=== PATIENT | male | born 1950 | race Caucasian/White ===

== ENCOUNTER 2017-09-24 10:42 | Inpatient (IN) | payer MEDICARE ==
[~2017-09-24] VITALS: Ht 185.4 cm; Wt 93.4 kg
[2017-09-24 19:10] VITALS: BP 108/75
[2017-09-24] MEDS ORDERED: ACETAMINOPHEN 325 MG TABLET/CAPLET (TYLENOL) PO PRN (20:00)
[2017-09-24] MEDS ORDERED: IBUPROFEN 600 MG (MOTRIN) TAB PO PRN (20:00)
[2017-09-24] MEDS ORDERED: METHOCARBAMOL 500 MG (ROBAXIN) TABLET PO PRN (20:00)
[2017-09-24] MEDS: DULoxetine 20 MG (CYMBALTA) CAP PO SCH (20:27)
[2017-09-24] MEDS: QUEtiapine 200 MG (SEROquel) TAB IMMEDIATE RELEASE PO SCH (20:27)
[2017-09-24] MEDS: SENNA W/DOCUSATE (SENOKOT S) TABLET PO SCH (20:27)
--- NOTE | 2017-09-24 20:38 | PM&R Post Admission Assessment ---
Post Admission Physician Asses Date seen by provider: September 24, 2017 Time seen by provider: 19:40 Admisison Dx: (1) Schwannoma The preadmission screen agrees with the post admission assessment that the patient is a good candidate for inpatient rehabilitation. The patient will have a comprehensive program of inpatient rehabilitation with a goal of maximizing level of functional independence prior to discharge home with family and HHC. The patient will have PT/OT ninety minutes per day, each discipline, five days a week for 10 days for gait, strengthening, conditioning , balance, ADLs, any patient/family/caregiver training as necessary. Speech therapy to do cognitive assessment and treat as indicated. Rehabilitation nursing to assist with bowel, bladder, skin, wound care, medication administration, pain management. Hand Sizer to assist with discharge planning, community reentry. SCD's and heparin Subcut for DVT prophylaxis. He appears to be well motivated to participate in three hours of therapy a day. He should be able to tolerate three hours of therapy a day from a medical standpoint. He should benefit from the three hours of therapy a day. He has a reasonable discharge plan, reasonable discharge rehabilitation goals and a supportive family. He has various comorbidities that need to be closely monitored with medications and treatments adjusted on a daily basis as needed. These include: Surgical Hypothroidism Hearing loss Depression HX ETOH abuse Tobaccoism Barriers to discharge for this patient who had been independent prior to this are for him to be modified independent to supervision for ADLs and mobility skills prior to discharge home with family and HHC, so as to lessen the burden of the caregivers. Risks for this patient include: 1. Fall 2. Fracture 3. DVT 4. Pulmonary embolism 5. Wound infection 6. Skin breakdown 7. Contractures 8. Poorly controlled pain 9. Urinary retention 10. UTI 11. Respiratory infection 12. Aspiration 13. Recurrent infection Estimated Length of Stay: 10 days Prognosis: Rehab prognosis appears good for goal of discharge home with family and HHC modified independent to supervision for ADLs and mobility skills. General: Alert, Oriented X3, Cooperative, No Acute Distress HEENT: Atraumatic, PERRLA, EOMI, Mucous Memb Moist/[place], Other (Bilateral hearing loss left > rt Well healing surgical scra posterior to left ear) Neck: Supple, No JVD Lungs: Clear to Auscultation Heart: Regular Rate Abdomen: Normal Bowel Sounds, Soft, No Tenderness Extremities: No Edema Neuro: Other (generalized mild weaknees) MAYRA KIM MD September 24, 2017 20:38
--- NOTE | 2017-09-24 21:33 | HISTORY AND PHYSICAL ---
DATE OF SERVICE: 09/24/2017 CHIEF COMPLAINT: Difficulty with hearing. 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 The patient had an intraoperative bradycardic asystolic pauses for about 30 seconds, but ultimately inpatient workup was negative. The patient was discharged in good condition to home. The patient presented to [facility] ED on 09/15/2017 with nausea, vomiting. The patient apparently was not taking his dexamethasone prescription. He was provided with a new prescription. He represented to [facility] ED with headaches, nausea, vomiting and altered mental status. The patient became agitated and combative. He required intubation and sedation and was transferred to [facility] and was admitted there on 09/17/2017. He was found to have acute encephalopathy secondary to bacterial meningitis. The patient was treated with antibiotics. Clinically, he was improving, but left with general debilitation and he is referred to inpatient rehabilitation unit at [facility] so as to be closer to home. Currently, he is Min assist for transfers and gait.He is Mod Independent for eating and SBA for the bulk of the rest of his basic adls.ST notes some mild cognitive impairments but sppech is intact No complaints of pain at this time. He complains of complete hearing loss on the left and partial hearing loss on the right which has been chronic. He is a retired [employer]. He has two adult sons that live nearby. He is single. PAST MEDICAL HISTORY: Ethanol abuse, anxiety disorder, bipolar disorder, colitis, generalized headaches, hypothyroidism on replacement, tobacco abuse. PAST SURGICAL HISTORY: As per above, thyroidectomy for goiter in 1988, tonsillectomy in 1969, finger surgery for right broken thumb, pin placed and then removed, vasectomy. ALLERGIES: No known medication allergies. FAMILY HISTORY: Noncontributory. SOCIAL HISTORY: Retired [employer], 2 packs per day of cigarettes for 30 years, ethanol abuse, had been independent prior to this. REVIEW OF SYSTEMS: Ten point review of systems significant for hearing loss, depression and anxiety. MEDICATIONS: Folic acid 1 mg p.o. daily, lisinopril 10 mg p.o. daily, vitamin B 100 mg p.o. daily, multivitamins with minerals one tablet p.o. daily, Synthroid 100 mcg p.o. daily, Cymbalta 40 mg p.o. b.i.d., Seroquel 200 mg p.o. t.i.d., Senokot-S 1 tablet p.o. b.i.d., Tylenol 650 mg p.o. q.4 hours p.r.n. mild pain. Heparin subq 5000 units subQ q.8hours, ibuprofen 600 mg p.o. q.8 hours p.r.n. mild pain. Robaxin 500 mg p.o. t.i.d. p.r.n. spasms. OxyIR 5 mg p.o. q.4 hours p.r.n. severe pain. PHYSICAL EXAMINATION: GENERAL: Significant for a male appearing his stated age, alert and oriented. Lying in bed in no acute distress. HEENT: He has shoulder length hair. He reports no hearing in the left ear, decreased hearing on the right. Vision and speech are grossly intact. No oral lesion is noted. His surgical site is healing well behind his left ear. NECK: Supple without mass. HEART: Regular rhythm. LUNGS: Chest is clear. ABDOMEN: Soft, nontender, bowel sounds present. EXTREMITIES: No leg edema, no calf tenderness. MUSCULOSKELETAL: He has functional active range of motion in all 4 extremities. NEUROLOGIC: Sensation is grossly intact to touch. Cognition mildly impaired with sone impulsivity. He has functional strength in BUES and %/% strength in BLES except for hip flex which is 4/5.he has mildly impaired standing balance. . He has a left facial droop, IMPRESSION: 1. General debilitation secondary to postop complications status post suboccipital craniotomy with retrosigmoid approach for resection of vestibular schwannoma, Dr. Gilliland [facility] 09/08/2017. 2. Postoperative bacterial meningitis treated. 3. Ethanol abuse. 4. Tobaccoism. 5. Bipolar disorder on meds. 6. Anxiety disorder on meds. 7. Surgical hypothyroidism, on replacement. 8. Bilateral hearing loss, left more than right. 9. Deep vein thrombosis prophylaxis, on heparin subq. PLAN: The patient will have comprehensive program of inpatient rehabilitation with goal of maximizing level of functional independence prior to discharge home with family and home health care. The patient will have PT, OT 90 minutes per day each discipline, 5 days a week for 7 to 10 days with the goal of discharging home with family and home health care, modified independent, supervision for ADLs and mobility skills. Speech therapy to assist the patient with compensatory techniques for his hearing loss and to do cognitive assessment and treat as indicated. Rehabilitation nursing to assist with bowel, bladder, skin, wound care, medication administration, pain management, food and nutrition services assistant to assist with discharge planning, community reentry. Please see post-admission physician evaluation which is a separate evaluation for details of plan of care. We will ask Dr. Jordan to assist with medical management as needed for this out of town patient. Routine admission labs. ESTIMATED LENGTH OF STAY: 10 days. PROGNOSIS: Rehab prognosis appears good for goal of discharge home with home health care and family to assist as needed, modified independent to supervision for ADLs and mobility skills. DIET: Regular. CODE STATUS: Full code. Job ID: [id number] DocumentID: [id number] Dictated Date: 09/24/2017 20:32:42 Publishing Editor Date: 09/24/2017 21:32:35 Dictated By: MAYRA KIM MD MTDD
[2017-09-25 05:07] VITALS: BP 126/78
[2017-09-25] MEDS: THIAMINE 100 MG (VITAMIN B-1) TAB PO SCH (05:25)
[2017-09-25] MEDS: MULTIVIT W/MINERALS TAB (THERAGRAN M) PO SCH (05:25)
[2017-09-25] MEDS: LEVOTHYROXINE 100 MCG (LEVOTHROID) TAB PO SCH (05:25)
[2017-09-25 05:51] LABS: BASOPHILS % (AUTO) 0 % (0-10); EOSINOPHILS # (AUTO) 0.2 10^3/uL (0.0-0.3); EOSINOPHILS % (AUTO) 1 % (0-10); HEMATOCRIT 42 % (40-54); HEMOGLOBIN 15.5 G/DL (13.3-17.7); LYMPHOCYTES # (AUTO) 9.7 X 10^3 (1.0-4.0); LYMPHOCYTES % (AUTO) 63 % (12-44); MEAN CORPUSCULAR HEMOGLOBIN 34 PG (25-34); MEAN CORPUSCULAR HGB CONC 37 G/DL (32-36); MEAN CORPUSCULAR VOLUME 91 FL (80-99); MEAN PLATELET VOLUME 8.8 FL (7.4-10.4); MONOCYTES % (AUTO) 7 % (0-12); NEUTROPHILS # (AUTO) 4.5 X 10^3 (1.8-7.8); NEUTROPHILS % (AUTO) 29 % (42-75); PLATELET COUNT 280 10^3/uL (130-400); RED BLOOD COUNT 4.57 10^6/uL (4.35-5.85); RED CELL DISTRIBUTION WIDTH 12.3 % (10.0-14.5); WHITE BLOOD COUNT 15.4 10^3/uL (4.3-11.0)
[2017-09-25 06:13] LABS: ALANINE AMINOTRANSFERASE 40 U/L (0-55); ALBUMIN 3.8 GM/DL (3.2-4.5); ALKALINE PHOSPHATASE 84 U/L (40-136); BILIRUBIN,TOTAL 0.5 MG/DL (0.1-1.0); BUN/CREATININE RATIO 16; CALCIUM 9.8 MG/DL (8.5-10.1); CARBON DIOXIDE 23 MMOL/L (21-32); CHLORIDE 100 MMOL/L (98-107); CREATININE SERUM 0.75 MG/DL (0.60-1.30); GFR ESTIMATED > 60; GLUCOSE 105 MG/DL (70-105); SODIUM 133 MMOL/L (135-145); TOTAL PROTEIN 6.4 GM/DL (6.4-8.2)
--- NOTE | 2017-09-25 08:38 | Consultation ---
History of Present Illness History of Present Illness Patient Consulted On(milagro/time) 09/25/17 08:32 Time Seen by Provider: 08:30 History of Present Illness Patient had surgery for an acoustic neuroma, at [facility]. Patient later showed up at [place] emergency department. Patient transferred back to . Patient having acute encephalopathy secondary to bacterial meningitis Patient has generalized debility. Patient has a history of ethanol abuse, anxiety disorder, bipolar, colitis, hypothyroid generalized headache, and tobacco abuse. Surgeries thyroid, right broken thumb, and vasectomy. Patient is deaf in left ear and hard of hearing and in right ear Allergies and Home Medications Allergies Coded Allergies: No Known Allergies (Verified Allergy, Unknown, 09/24/17) Patient Home Medication List Home Medication List Reviewed: Yes Past Togzavf-Lipliw-Ovlhru Hx Patient Social History Alcohol Use: Regular Use Number of Drinks Today: 12 Alcohol Beverage of Choice: Beer Recreational Drug Use: No Smoking Status: Heavy Tobacco Smoker Type Used: Cigarettes Recent Foreign Travel: No Contact w/Someone Who Travel: No Recent Infectious Disease Expo: No Recent Hopitalizations: Yes ([place] Schwannoma 09/08/17) Seasonal Allergies Seasonal Allergies: No Past Medical History Respiratory: No Cardiac: No Neurological: Yes Genitourinary: No Colitis Musculoskeletal: No Endocrine: Yes HEENT: No Cancer: No Psychosocial: Yes Anxiety, Bipolar, Depression Integumentary: No Blood Disorders: No Adverse Reaction/Blood Tranf: No Family Medical History Patient reports no known family medical history. Review of Systems-General Constitutional: weakness EENTM: hearing loss, other (Heart of hearing) Respiratory: no symptoms reported Cardiovascular: no symptoms reported Gastrointestinal: no symptoms reported Genitourinary: no symptoms reported Physical Exam-General Problems Physical Exam Vital Signs Vital Signs - First Documented 09/24/17 19:10 Temp 97.0 Pulse 84 Resp 18 B/P (MAP) 108/75 (86) Pulse Ox 94 O2 Delivery Room Air Capillary Refill : General Appearance: WD/WN, no apparent distress Eyes: Bilateral Eye Normal Inspection HEENT: normal ENT inspection, other (Hard of hearing) Neck: full range of motion, normal inspection Respiratory: lungs clear, no respiratory distress, no accessory muscle use Cardiovascular: regular rate, rhythm, no murmur Gastrointestinal: non tender, soft Assessment/Plan Assessment/Plan Admission Diagnosis/Plan Acute encephalopathy. Debility Admission Status: Inpatient Order (span 2 midnights) Reason for Inpatient Admission: Debility Clinical Quality Measures DVT/VTE Risk/Contraindication: Risk Factor Score Per Nursin RFS Level Per Nursing on Admit: 4+=Very High TRACY BE DO September 25, 2017 08:37
[2017-09-25] MEDS: QUEtiapine 200 MG (SEROquel) TAB IMMEDIATE RELEASE PO SCH ×3 (08:50→19:50)
[2017-09-25] MEDS: DULoxetine 20 MG (CYMBALTA) CAP PO SCH ×2 (08:50→19:50)
[2017-09-25] MEDS: SENNA W/DOCUSATE (SENOKOT S) TABLET PO SCH ×2 (08:51→19:50)
[2017-09-25] MEDS: FOLIC ACID 1 MG TAB PO SCH (08:51)
[2017-09-25] MEDS: lisINopril 10 MG (PRINIVIL) TABLET PO SCH (08:51)
--- NOTE | 2017-09-25 09:58 | Physical Therapy Evaluation ---
PT Evaluation-General Medical Diagnosis Admission Date September 24, 2017 at 19:05 Medical Diagnosis: encephalopathy Onset Date: Nov 07, 2017 Therapy Diagnosis Therapy Diagnosis: impaired mobility, strength, endurance, balance Height/Weight Height (Feet): 6 Height (Inches): 1.00 Weight (Pounds): 219 Weight (Ounces): 0.0 Precautions Precautions/Isolations: Fall Prevention, Standard Precautions Referral Physician: Ryan Reason for Referral: Evaluation/Treatment Medical History Additional Medical History PAST MEDICAL HISTORY: Ethanol abuse, anxiety disorder, bipolar disorder, colitis, generalized headaches, hypothyroidism on replacement, tobacco abuse. PAST SURGICAL HISTORY: thyroidectomy for goiter in 1988, tonsillectomy in 1969, finger surgery for right broken thumb, placed and then removed, vasectomy. 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 The patient had an intraoperative bradycardic asystolic pauses for about 30 seconds, but ultimately inpatient workup was negative. The patient was discharged in good condition to home. The patient presented to [place] ED on 09/15/2017 with nausea, vomiting. The patient apparently was not taking his dexamethasone prescription. He was provided with a new prescription. He represented to [place] ED with headaches, nausea, vomiting and altered mental status. The patient became agitated and combative. He required intubation and sedation and was transferred to [facility] and was admitted there on 09/17/2017. He was found to have acute encephalopathy secondary to bacterial meningitis. The patient was treated with antibiotics. Clinically, he was improving, but left with general debilitation and he is referred to inpatient rehabilitation unit at [facility] so as to be closer to home. Reviewed History: Yes Social History Home: Single Level Current Living Status: Alone Entry Into Home: Stairs Without Railing PT Steps Into Home: 3 Prior/Core FIM Prior Level of Function Functional [place] Measure 0=Not Assessed/NA 4=Minimal Assistance 1=Total Assistance 5=Supervision or Setup 2=Maximal Assistance 6=Modified [place] 3=Moderate Assistance 7=Complete [place] Bed Mobility: 7 Transfers (B,C,W/C) (FIM): 7 Gait: 7 Patient states he uses a single point cane on occasion. PT Evaluation-Current Subjective Patient in bed pre tx, agrees to PT, no complaints of pain. Patient states he has been getting dizzy before his surgeries and still gets dizzy but not as bad. Pt/Family Goals to be independent at home. Objective Patient Orientation: Person, Place ROM/Strength ROM Lower Extremities WNL Strenght Lower Extremities 5/5 gross bilateral lower extremities except for hip flexion which is 4/5 bilaterally Neuromuscular (Tone, Coordination, Reflexes) NT Sensory Vision: Wears Glasses Hearing: Impaired Sensation Right Lower Extremit: Intact Sensation Left Lower Extremity: Intact Transfers Functional [place] Measure 0=Not Assessed/NA 4=Minimal Assistance 1=Total Assistance 5=Supervision or Setup 2=Maximal Assistance 6=Modified [place] 3=Moderate Assistance 7=Complete IndependenceIRFPAI Quality Coding Scale 6 Independent with activity with or without an assistive device 5 Patient requires set up or clean up by helper. Patient completes activity by themselves 4 Supervision or touching assist (CGA). [place] provide cues , steadying assist 3 The helper provides less than half the effort to complete the activity 2 The helper provides more than half the effort to complete the activity 1 Dependent. The helper does all the effort to complete an activity 7 Patient refused to complete or attempt activity 9 The patient did not perform the activity before the current illness or injury 88 Not attempted due to Medical conditions or safety concerns Transfers (B, C, W/C) (FIM): 4 Scootin Rollin Roll Left to Right (QC): 4 Supine to/from Sit: 5 Sit to/from Stand: 5 bed t/f WC(FIM only if WC use): 4 Sit to Lying (QC): 4 Lying to Sitting/Side of Bed(Q: 4 Sit to Stand (QC): 4 Chair/Zpv-hy-Fpkxf Xfer(QC): 4 Car Transfer (QC): 4 Patient performs bed mobility and supine to sit and sit to stand with SBA, stand pivot transfer with CGA, car transfer with CGA. Gait Does the Patient Walk?: Yes Anticipated Mode of Locomotion: Walk Gait (FIM): 4 Walk 10 feet (QC): 4 Walk 50 ft with 2 Turns(QC): 4 Walk 150 ft (QC): 4 Walking 10ft/uneven surface-QC: 4 Distance: 150'x2 Gait Level of Assist: 4 Gait Persons Needed: 1 Gait Assistive Device: FWW Comments/Gait Description Patient can ambulate 150' with a rolling walker with CGA, including 50' with at least 2 turns of 90 degrees and 10' over an uneven surface. Patient is SBA when ambulating without turning but needs CGA on turns. He has unstable moments but no aviva LOB, he is able to recover by himself. Wheelchair Training Does the Pt Use a Wheelchair?: No Stairs Stairs (FIM): 2 #of Steps: 4 Level of Assist: 4 1 Step (curb) (QC): 4 4 Steps (QC): 4 12 Steps (QC): 88 Patient can go up and down 4 steps using 2 handrails with CGA. Balance Sitting Static: Normal Sitting Dynamic: Normal Standing Static: Fair Standing Dynamic: Fair Picking up an Object (QC): 4 Treatment parallel bars exercises x20 (heel raises, mini-squats, hamstring curls), seated hip flexion x20, LAQ alternating for 5 min Assessment/Needs Patient has impaired balance and endurance. He can only perform one or two activities at a time before becoming fatigued. Patient is impulsive and has poor safety awareness. Rehab Potential: Fair PT Short Term Goals Short Term Goals Time Frame: October 02, 2017 Transfers (B,C,W/C) (FIM): 5 Gait (FIM): 5 Gait Distance Comment: 200' Gait Level of Assist: 5 Gait Assistive Device: FWW PT Senior Care Goals Sanitation Lead Goals PT Sanitation Lead Goals Time Frame: Oct 16, 2017 Transfers (B,C,W/C) (FIM): 6 Sit to Lying (QC): 6 Lying-Sitting on Side/Bed(QC): 6 Sit to Stand (QC): 6 Rollin Roll Left to Right (QC): 6 Chair/Ixn-rk-Kgdiw Xfer(QC): 6 Car Transfer (QC): 6 Gait (FIM): 6 Distance: 350' Walk 10 feet (QC): 6 Walk 10ft-Uneven Surface(QC): 6 Walk 50ft with 2 Turns (QC): 6 Walk 150 ft (QC): 6 Gait Level of Assist: 6 Gait Assistive Device: FWW Stairs (FIM): 5 # of Steps: 12 1 Step (curb) (QC): 4 4 Steps (QC): 4 12 Steps (QC): 4 Stairs Level Of Assist: 5 Picking up an Object (QC): 4 PT Plan Problem List Problem List: Activity Tolerance, Functional Strength, Safety, Balance, Gait, Transfer, Bed Mobility Treatment/Plan Treatment Plan: Continue Plan of Care Treatment Plan: Bed Mobility, Education, Functional Activity Sid, Functional Strength, Group Therapy, Gait, Safety, Therapeutic Exercise, Transfers Treatment Duration: Oct 16, 2017 Frequency: At least 5 of 7 days/Wk (IRF) Estimated Hrs Per Day: 1.5 hours per day Patient and/or Family Agrees t: Yes Safety Risks/Education Patient Education: Gait Training, Transfer Techniques, Steps, Correct Positioning, Safety Issues Teaching Recipient: Patient Teaching Methods: Demonstration, Discussion Response to Teaching: Reinforcement Needed Discharge Recommendations Plan Patient will perform bed mobility and transfer training, balance and endurance training, functional strengthening, stair training, gait training, and education , to improve functional mobility and independence at home. Therapy D/C Recommendations: Home w/ Family Support Time/GCodes Time In: 0900 Time Out: 1000 Total Billed Treatment Time: 60 Total Billed Treatment 1 visit EVM 30' GT 15' EX 15' JANA SPRING PT September 25, 2017 09:58
[2017-09-25] MEDS ORDERED: SENN-40 PO (09:59)
[2017-09-25] MEDS ORDERED: QUET200T PO (09:59)
[2017-09-25] MEDS ORDERED: OXYC-529 PO (09:59)
[2017-09-25] MEDS ORDERED: LEVO100T7 PO (09:59)
[2017-09-25] MEDS ORDERED: DULO60CA6 PO (09:59)
[2017-09-25] MEDS ORDERED: LISI10TA2 PO (09:59)
--- NOTE | 2017-09-25 10:35 | ST Cognitive Linguistic Eval ---
Speech Evaluation-General Medical Diagnosis Encephalopathy Onset Date: Nov 07, 2017 Therapy Diagnosis Therapy Diagnosis: Cognitive Linguistic Skills Grossly WNL Precautions Precautions/Isolations: Fall Prevention, Standard Precautions Referral Referring Physician: Dr. Clif Davis Reason for Referral: Evaluation/Treatment Cognitive Evaluation Medical History Pertinent Medical History: Hypothroidism, Smoking - removal of acoustic schwannoma, ETOH abuse, bipolar, colitis Current History The patient was recently admitted to [facility] with a diagnosis of metabolic encephalopathy. Reviewed History: Yes Social History Home: Single Level (Three Steps to Enter) Current Living Status: Alone (Per patient, "I usually stay at my girlfriend's place.") Speech PLF-Current Status Prior Level of Function The patient denied prior challenges with speech, language, or cognition. Subjective The patient was seated upright in bed, reading the menu upon entrance. The patient greeted the clinician appropriately and was agreeable to participation in the cognitive evaluation. To note, the patient has NO HEARING IN THE LEFT EAR AND PARTIAL HEARING IN THE RIGHT EAR- elevated volume levels are necessary for comprehension. Language Eval: Auditory Comprehends Simple Yes/No Ques: Functional Indent/Objects [place]: Functional Ident/Pics in Multiple [place]: Functional Follows Complex Directions: Mild (Repetition of instructions may be necessary, however, the patient's hearing status may also be responsible for the delays he exhibits.) Follows General Conversations: Functional - Elevated volume levels are necessary for comprehension. Language Eval: Verbal Language Completes Spontaneous Greeting: Functional Produces Auto, Serial Info: Functional Imitates Simple Words/Phrases: Functional Word Finding: Functional Requests Basic Needs: Functional (The patient independently requested the clinician place his breakfast order as he was concerned of hearing the telephone call correctly.) States Basic Personal Info: Functional Expresses Complex Ideas: Functional (The patient explained the process to his hospitalization in detail to the clinician.) Language Evaluation: Reading Comprehends Single Nouns: Functional Follows Simple Written Direct: Functional To note, the patient does report left eye blurriness (states improvement on this date). Cognitive Patient Orientation The patient was independently oriented to self, location, month, day of week, date, and year. Objective Cognitive Domain Attention: Mild (The patient does displays intermittent impulsivity. The patient's hearing and vision deficit may compound this as he does not appear aware of his environment.) Memory: WNL Problem Solving: Mild (The patient does displays intermittent impulsivity which may negatively impact problem solving. The patient's hearing and vision deficit may compound this as he does not appear aware of his environment.) Objective Oral Motor/Speech Production The patient displays left facial weakness and the inability to close his left eye. Additionally, a left labial droop is present. Regardless of weakness, the patient remains 100% intelligible in known and unknown contexts. Impression The patient displays cognitive linguistic skills grossly within normal limits, however, may exhibit impulsivity intermittently. The impulsivity appears somewhat related to his poor vision and significantly decreased hearing as his awareness of his environment is extremely limited. Communication/Social Cognition Comprehension: 5 (The patient requires reduced rate of speech, gestural cues, and stressing of particular words less an 10% of the time. Additionally, the patient wears glasses.) Expression: 6 Social Interaction: 6 (The patient is on an anti-depressant.) Problem Solvin Memory: 5 Speech Patient Assess Expression of Ideas/Wants: Expression (4) Understanding Verbal Content: Usually Understands (3) Brief Interview-Mental Status: Yes Repetition of Three Words: Three (3) Temporal Orientation: Year: Correct (3) Temporal Orientation: Month: Accurate within 5 days(2) Temporal Orientation: Day: Correct (1) Recall : Wear to say "Sock": Yes, no cue required (2) Recall : Color: Yes, no cue required (2) Recall : Bed: Yes, no cue required (2) Speech-Plan Treatment Plan Speech Therapy Treatment Plan: Discontinue ST Evaluation, only. Frequency: Modified Program (IRF) (No ST warranted.) Estimated Hrs Per Day: Other (No ST warranted.) Rehab Potential: Fair Safety Risks/Education Teaching Recipient: Patient Teaching Methods: Discussion Response to Teaching: Verbalize Understanding Education Topics Provided: Results, Recommendations, Plan of Care Time Speech Therapy Time In: 08:00 Speech Therapy Time Out: 08:30 Total Billed Time: 30 Billed Treatment Time 1, GABRIELLE BORJA September 25, 2017 10:35
--- NOTE | 2017-09-25 13:00 | Occupational Therapy Eval ---
OT Evaluation-General/PLF Medical Diagnosis Admission Date September 24, 2017 at 19:05 Medical Diagnosis: Encephalopathy, meningitis Onset Date: September 17, 2017 Therapy Diagnosis Therapy Diagnosis: dec self care, decr funct mobility, decr act april Height/Weight Height (Feet): 6 Height (Inches): 1.00 Weight (Pounds): 219 Weight (Ounces): 0.0 Precautions Precautions/Isolations: Fall Prevention, Standard Precautions Safety Interventions: None Referral Physician: Ryan Referral Reason: Evaluation/Treatment Medical History Pertinent Medical History: Hypothroidism, Smoking Additional Medical History ETOH abuse. Anxiety disorder, bipolar. Colitis. Headaches. Thyroidectomy for goiter. Tobacco abuse. 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 Readmitted to for acute encephalopathy on 09-17-17. No hearing on L side, decreased hearing on R side. Reviewed History: Yes Social History Home: Single Level Current Living Status: Alone (Per patient, "I usually stay at my girlfriend's place.") Entry Into Home: Stairs Without Railing Steps Into Home: 3 ADL-Prior Level of Function ADL PLOF Comments Pt reported that he was previously able to manage all of his basic self care needs and do whatever he needed to do around the house. He had his lawn mowed by neighbor recently. 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 He said he drove after his surgery. Occupation: contractor/[address] Self: Yes OT Current Status Subjective Pt seen in room, up in bed, agreeable to OT. Pt reported pain 0/10. Appearance Alert, cooperative. Sleeping but easily awakened. Mental Status/Objective Patient Orientation: Person, Place, Time, Situation Current Glasses/Contacts: Yes Hearing Aids: No Dentures/Partials: No Hand Dominance: Right Upper Extremity ROM Grossly WFL bilat Upper Extremity Sensation No problems, per patient report Upper Extremity Strength Grossly 4+/5 bilat ADL-Treatment ADL-Current Pt declined sponge bath and will wait until tomorrow for shower and clean clothes. He did wash his face and hands with warm water, setup at bedside. His hair is tangled and matted in back and hopefully will work out some in shower. He got up from bed with SBA and walked with CGA, FWW to bathroom where he sat to brush his teeth with setup. He walked to toilet with FWW, SBA and got on toilet but with sitting down fairly uncontrolled. He managed clothing and hygiene with SBA, FWW, grab bar. He walked back to recliner and attempted to order lunch but had difficulty hearing and communicating with food stand manager center. He fed himself without help for setup. Left up in recliner, chair alarm on (he reported he has been taking himself to the bathroom), all needs met. Functional [place] Measure 0=Not Assessed/NA 4=Minimal Assistance 1=Total Assistance 5=Supervision or Setup 2=Maximal Assistance 6=Modified [place] 3=Moderate Assistance 7=Complete IndependenceIRFPAI Quality Coding Scale 6 Independent with activity with or without an assistive device 5 Patient requires set up or clean up by helper. Patient completes activity by themselves 4 Supervision or touching assist (CGA). [place] provide cues , steadying assist 3 The helper provides less than half the effort to complete the activity 2 The helper provides more than half the effort to complete the activity 1 Dependent. The helper does all the effort to complete an activity 7 Patient refused to complete or attempt activity 9 The patient did not perform the activity before the current illness or injury 88 Not attempted due to Medical conditions or safety concerns Eating (FIM): 7 Eating (QC): 6 Grooming (FIM): 5 (setup to wash face and hands, brush teeth. Unable to comb tangles out of hair - may need to get it cut off) Oral Hygiene (QC): 5 (setup) Toileting (FIM): 5 (SBA for clothing management and hygiene. Tall toilet, grab bars, FWW) Toileting Hygiene (QC): 4 (SBA) Toilet/Commode Transfer (FIM): 5 (SBA tall toilet, grab bar) Toilet Transfer (QC): 4 (SBA) Education OT Patient Education: Purpose of tx/functional activities, Rehab process, Safety issues, Transfer techniques Teaching Recipient: Patient Teaching Methods: Demonstration, Discussion Response to Teaching: Verbalize Understanding, Return Demonstration, Reinforcement Needed OT Short Term Goals Short Term Goals Time Frame: October 02, 2017 Toilet/Commode Transfer(FIM): 5 Shower Transfer(FIM): 5 1=Demonstrate adherence to instructed precautions during ADL tasks. 2=Patient will verbalize/demonstrate understanding of assistive devices/ modifications for ADL. 3=Patient will improve strength/tolerance for activity to enable patient to perform ADL's. OT Group Home Goals Digital Media Associate Goals Time Frame: Oct 16, 2017 Eating (FIM): 7 Eating (QC): 6 Groomin Oral Hygiene (QC): 6 Bathing(FIM): 6 Shower/Bathe Self (QC): 6 Upper Body Dressing(FIM): 6 Upper Body Dressing (QC): 6 Lower Body Dressing(FIM): 6 Lower Body Dressing (QC): 6 On/Off Footwear (QC): 6 Toileting(FIM): 6 Toileting Hygiene (QC): 6 Toilet/Commode Transfer(FIM): 6 Toilet/Commode Transfer (QC): 6 Shower Transfer(FIM): 6 Additional Goals: 1-Demonstrate ADL Tasks, 2-Verbalize Understanding, 3- ImproveStrength/Sid 1=Demonstrate adherence to instructed precautions during ADL tasks. 2=Patient will verbalize/demonstrate understanding of assistive devices/ modifications for ADL. 3=Patient will improve strength/tolerance for activity to enable patient to perform ADL's. OT Education/Plan Problem List/Assessment Assessment: Decreased Activ Tolerance, Decreased Safety Aware, Decreased UE Strength, Dependent Transfers, Impaired Funct Balance, Impaired Self-Care Skills Pt would benefit from skilled OT to increase his independence in basic self care Discharge Recommendations Plan/Recommendations: Continue POC Treatment Plan/Plan of Care Treatment,Training & Education: Yes Patient would benefit from OT for education, treatment and training to promote independence in ADL's, mobility, safety and/or upper extremity function for ADL' s. Plan of Care: ADL Retraining, Functional Mobility, Group Exercise/Act as Ind ( education, exercise, activity tolerance, socialization, safety awareness), UE Funct Exercise/Act, UE Neuromus Re-Ed/Coord Treatment Duration: Oct 16, 2017 Frequency: At least 5 of 7 days/Wk (IRF) Estimated Hrs Per Day: 1.5 hours per day Agreement: Yes Rehab Potential: Fair Time/GCodes Start Time: 10:45 Stop Time: 11:30 Total Time Billed (hr/min): 45 Billed Treatment Time visit, evaluation high intensity 20 minutes, ADL 25 minutes PREETHI TORRES OT September 25, 2017 13:00
--- NOTE | 2017-09-25 14:01 | Physical Therapy Daily Note ---
PT Daily Note-Current Subjective Patient in recliner pre tx, agrees to PT, no complaints of pain. Appearance Patient in bathroom post tx, instructed to use nurse call when done, nurse notified patient is in bathroom. Mental Status Patient Orientation: Person, Place, Situation Transfers Functional [place] Measure 0=Not Assessed/NA 4=Minimal Assistance 1=Total Assistance 5=Supervision or Setup 2=Maximal Assistance 6=Modified [place] 3=Moderate Assistance 7=Complete IndependenceIRFPAI Quality Coding Scale 6 Independent with activity with or without an assistive device 5 Patient requires set up or clean up by helper. Patient completes activity by themselves 4 Supervision or touching assist (CGA). [place] provide cues , steadying assist 3 The helper provides less than half the effort to complete the activity 2 The helper provides more than half the effort to complete the activity 1 Dependent. The helper does all the effort to complete an activity 7 Patient refused to complete or attempt activity 9 The patient did not perform the activity before the current illness or injury 88 Not attempted due to Medical conditions or safety concerns Transfers (B, C, W/C) (FIM): 5 Sit to/from Stand: 5 Bed to/from Chair: 5 Gait Training Gait (FIM): 5 Distance: 150'x2 Gait Level of Assist: 5 Gait Persons Needed: 1 Gait Assistive Device: FWW Patient ambulates impulsively and briskly, needs cues for safety. Exercises NuStep Minutes: 15 NuStep Workload: 5 Treatments transfers, ambulation, functional strengthening Assessment Current Status: Fair Progress Patient moves quickly and impulsively but is slow to actually start activities. PT Short Term Goals Short Term Goals Time Frame: October 02, 2017 Transfers (B,C,W/C) (FIM): 5 Gait (FIM): 5 Gait Distance Comment: 200' Gait Level of Assist: 5 Gait Assistive Device: FWW PT Retirement Goals Retirement Goals PT Optical Designer Goals Time Frame: Oct 16, 2017 Transfers (B,C,W/C) (FIM): 6 Sit to Lying (QC): 6 Lying-Sitting on Side/Bed(QC): 6 Sit to Stand (QC): 6 Rollin Roll Left to Right (QC): 6 Chair/Sse-bb-Oodys Xfer(QC): 6 Car Transfer (QC): 6 Gait (FIM): 6 Distance: 350' Walk 10 feet (QC): 6 Walk 10ft-Uneven Surface(QC): 6 Walk 50ft with 2 Turns (QC): 6 Walk 150 ft (QC): 6 Gait Level of Assist: 6 Gait Assistive Device: FWW Stairs (FIM): 5 # of Steps: 12 1 Step (curb) (QC): 4 4 Steps (QC): 4 12 Steps (QC): 4 Stairs Level Of Assist: 5 Picking up an Object (QC): 4 PT Plan Problem List Problem List: Activity Tolerance, Functional Strength, Safety, Balance, Gait, Transfer, Bed Mobility Treatment/Plan Treatment Plan: Continue Plan of Care Treatment Plan: Bed Mobility, Education, Functional Activity Sid, Functional Strength, Group Therapy, Gait, Safety, Therapeutic Exercise, Transfers Treatment Duration: Oct 16, 2017 Frequency: At least 5 of 7 days/Wk (IRF) Estimated Hrs Per Day: 1.5 hours per day Patient and/or Family Agrees t: Yes Safety Risks/Education Patient Education: Gait Training, Transfer Techniques, Correct Positioning, Safety Issues Teaching Recipient: Patient Teaching Methods: Demonstration, Discussion Response to Teaching: Reinforcement Needed Time/GCodes Time In: 1330 Time Out: 1400 Total Billed Treatment Time: 30 Total Billed Treatment 1 visit EX 15' GT 15' JANA SPRING PT September 25, 2017 14:01
--- NOTE | 2017-09-25 14:09 | Individualized Plan of Care ---
Individualized Plan of Care Rehab Nursing IPOC Order Admission Date September 24, 2017 at 19:05 Current Orders Orders General/Regular (09/24/17 Dinner) Sequential Compression Device 08,20 (09/24/17 19:46) Dvt/Vte Risk - Notifiy Physici 08 (09/24/17 19:46) Admission Order(Inpt,Obs,Sdc) (09/24/17 19:47) Vital Signs: Routine (Order) 08,16,00 (09/24/17 19:47) Sequential Compression Device 08,20 (09/24/17 19:47) Car Record Clerk-Inpt Rehab Con (09/24/17 19:47) Rehab Nursing Orders-Ipoc (09/24/17 19:47) Physical Therapy Rehab Orders (09/24/17 19:47) Occupational Therapy Rehab Ord (09/24/17 19:47) Speech Therapy Rehab Orders (09/24/17 19:47) Turn And Reposition Q2HR (09/24/17 19:47) Intake & Output 06,14,22 (09/24/17 19:47) Weekly Weight (Lbs) WEEK (09/24/17 19:47) Cbc With Automated Diff (09/25/17 06:00) Comprehensive Metabolic Panel (09/25/17 06:00) Consult Physician (09/24/17 19:52) Acetaminophen Tablet/Caplet (Tylenol T (09/24/17 20:00) Folic Acid Tablet (Folic Acid Tablet) (09/25/17 09:00) Heparin Injection (Heparin Injection) (09/24/17 20:00) Ibuprofen Tablet (Motrin Tablet) (09/24/17 20:00) Methocarbamol Tablet (Robaxin Tablet) (09/24/17 20:00) Thiamine Tablet (Vitamin B-1 Tablet) (09/25/17 07:00) Therapeutic Multivitamin Tab (Vitamins, (09/25/17 07:00) Oxycodone Immediate Rel Tablet (Oxyir Ta (09/24/17 20:00) Duloxetine Capsule (Cymbalta Capsule) (09/24/17 21:00) Levothyroxine Tablet (Synthroid Tablet) (09/25/17 06:30) Quetiapine Immediate Release (Seroquel I (09/24/17 21:00) Lisinopril Tablet (Zestril Tablet) (09/25/17 09:00) Senna S Tablet (Senokot S Tablet) (09/24/17 21:00) Patient Visit (09/25/17 ) Speech Sound Lang Comp (09/25/17 ) Enoxaparin Injection (Lovenox Injection) (09/26/17 09:00) Patient Visit (09/25/17 ) Pt Eval Moderate Complexity (09/25/17 ) Exercise Therap, Ea 15 Min (09/25/17 ) Gait Training, Ea 15 Min (09/25/17 ) Patient Visit (09/26/17 ) Functional Activities, Ea 15 (09/26/17 ) Exercise Therap, Ea 15 Min (09/26/17 ) Gait Training, Ea 15 Min (09/26/17 ) Rehab Nursing Orders: Ongoing Assess. of Cognitive Status, Ongoing Assess. of Function Status, Disease Management & Educaiton, DVT Prophylaxis, Fall Prevention, Fluid/Electrolyte/Nutrition Mgmt, Infection Prevention, Medication Management & Education, Management of Risks & Complications, Management of Skin Intergrity, Nutrition Management, Pain Management, Patient/Family Support Other Nursing Orders: Monitor for urinary retention and constipation PT IPOC Problem List: Activity Tolerance, Functional Strength, Safety, Balance, Gait, Transfer, Bed Mobility Treatment Plan: Continue Plan of Care Bed Mobility, Education, Functional Activity Sid, Functional Strength, Group Therapy, Gait, Safety, Therapeutic Exercise, Transfers Treatment Duration: Oct 16, 2017 Frequency: 2 times per week Estimated Hrs Per Day: 1.5 hours per day OT IPOC Problems: Decreased Activ Tolerance, Decreased Safety Aware, Impaired Bed Mobility, Impaired Cognition, Impaired Coordination, Impaired Funct Balance, Impaired I ADL's, Impaired Self-Care Skills OT Treatment, Training and Edu: Yes Plan of Care: ADL Retraining, Caregiver Training, Cognitive Retraining, Functional Mobility, Group Exercise/Act as Ind Treatment Duration: Oct 16, 2017 Frequency: 5 times per week Estimated Hrs Per Day: 1.[address] IPOC Speech Therapy Treatment Plan: Discontinue ST Treatment Duration: September 25, 2017 Frequency: Modified Program (IRF) (No ST warranted.) Estimated Hrs Per Day: Other (No ST warranted.) Car Record Clerk/Case Mgmt Car Record Clerk/Case Managemen: Discharge Planning, Patient/Family Counseling Dietitian/Export Freight Manager Dietitian/Export Freight Manager to monitor nutritional status and make changes and/or recommendations as needed and work with speech pathology on dietary upgrades as the occur. Physician IPOC Medical Issues being managed closely and that require the 24 hour availability of a physician: Tobaccoism ETOH abuse Bipolar disorder Postop confusion multifactorila Bilateral hearing loss Left > rt Medical Issues: DVT Prophylaxis, Falls Precautions, Infection Protection, Pain Management, Other (List) (as per above) Brief Synthesis of Preadmission Screen, Post-Admission Evaluation, and Therapy Evaluations: 67 yo male who had post op complications s/p Crani and excision of schwannoma Had been Independent prior to this Please see H&P Medical Prognosis: good Anticipated Length of Stay: 7-10-floyd Modified Independent for adls and mobilty skills Anticipated d/c Destination: Home with family and [facility] MAYRA KIM MD September 25, 2017 14:09
--- NOTE | 2017-09-25 14:14 | PM & R (SOAP) Progress Note ---
Subjective This was a face to face visit with the patient. Date Seen by Provider: September 25, 2017 Time Seen by Provider: 08:00 Subjective/Events-last exam Patient was seen in his room this AM Adjusting well to Unit Appreciate therapy and DR fortune notes as well as current labs Patient SBA for transfers and Gait Review of Systems HEENT: Other (hearing loss) Objective Physician Exam Last Set of Vital Signs Vital Signs Date Time Temp Pulse Resp B/P (MAP) Pulse Ox O2 Delivery O2 Flow Rate FiO2 09/25/17 05:07 97.5 78 20 126/78 (94) 95 Room Air Capillary Refill : I&O Intake and Output 09/25/17 00:00 Daily Weight Change No General: Alert, Oriented X3, Cooperative, No Acute Distress HEENT: Atraumatic, PERRLA, EOMI, Mucous Memb Moist/[place], Other (Bilateral hearing loss left > rt Well healing surgical scra posterior to left ear) Neck: Supple, No JVD Lungs: Clear to Auscultation Heart: Regular Rate Abdomen: Normal Bowel Sounds, Soft, No Tenderness Extremities: No Edema Neuro: Other (generalized mild weaknees) Results Lab Data Laboratory Tests 09/25/17 05:29: White Blood Count 15.4H, Red Blood Count 4.57, Hemoglobin 15.5, Hematocrit 42, Mean Corpuscular Volume 91, Mean Corpuscular Hemoglobin 34, Mean Corpuscular Hemoglobin Concent 37H, Red Cell Distribution Width 12.3, Platelet Count 280, Mean Platelet Volume 8.8, Neutrophils (%) (Auto) 29L, Lymphocytes (%) (Auto) 63H , Monocytes (%) (Auto) 7, Eosinophils (%) (Auto) 1, Basophils (%) (Auto) 0, Neutrophils # (Auto) 4.5, Lymphocytes # (Auto) 9.7H, Monocytes # (Auto) 1.0, Eosinophils # (Auto) 0.2, Basophils # (Auto) 0.0, Sodium Level 133L, Potassium Level 4.0, Chloride Level 100, Carbon Dioxide Level 23, Anion Gap 10, Blood Urea Nitrogen 12, Creatinine 0.75, Estimat Glomerular Filtration Rate > 60, BUN/ Creatinine Ratio 16, Glucose Level 105, Calcium Level 9.8, Total Bilirubin 0.5, Aspartate Amino Transf (AST/SGOT) 19, Alanine Aminotransferase (ALT/SGPT) 40, Alkaline Phosphatase 84, Total Protein 6.4, Albumin 3.8 Assessment/Plan Assessment and Plan General debil s/p Suboccipital crani with retrosigmoid approach for [facility] of vestibular [facility]oma[facility] 09/08/17 Postop infection treated ETOH abuse Tobaccoism Bipolar disorder on meds Surgical hypothyroidism on replacement Bilateral hearing loss Left >Rt DVT prophylaxis on Heparin Subcut Plan Continue PT/OT ST has signed off Team Conference next week Dr elias covering my service from 09/28/17 til 10/02/17 12 noon (1) Schwannoma Status: Acute Co-Morbidities that are continuing to impact the rehab process: (include details ) MAYRA KIM MD September 25, 2017 14:14
--- NOTE | 2017-09-25 14:32 | Occupational Ther Daily Note ---
OT Current Status-Daily Note Subjective Pt seen in bed, asleep but easily awakened. Agreeable to OT. No pain mentioned Appearance Asleep but wakes up easily. At end of tx, he got into recliner and went to sleep again. he reported difficulty staying awake and sleeping at night. Mental Status/Objective Functional [place] Measure 0=Not Assessed/NA 4=Minimal Assistance 1=Total Assistance 5=Supervision or Setup 2=Maximal Assistance 6=Modified [place] 3=Moderate Assistance 7=Complete [place] ADL-Treatment Functional [place] Measure 0=Not Assessed/NA 4=Minimal Assistance 1=Total Assistance 5=Supervision or Setup 2=Maximal Assistance 6=Modified [place] 3=Moderate Assistance 7=Complete IndependenceIRFPAI Quality Coding Scale 6 Independent with activity with or without an assistive device 5 Patient requires set up or clean up by helper. Patient completes activity by themselves 4 Supervision or touching assist (CGA). [place] provide cues , steadying assist 3 The helper provides less than half the effort to complete the activity 2 The helper provides more than half the effort to complete the activity 1 Dependent. The helper does all the effort to complete an activity 7 Patient refused to complete or attempt activity 9 The patient did not perform the activity before the current illness or injury 88 Not attempted due to Medical conditions or safety concerns Other Treatment Pt raised head of bed up to help him come to sitting EOB. He got up from bed without help and walked with CGA/SBA and FWW to gym. He did 14 minutes bilat UE exercise with arm bike, taking several recovery breaks due to fatigue and decreased activity tolerance. He walked back to room with SBA, FWW and transferred into recliner with SBA. He promptly elevated his legs and closed his eyes, all needs met. Education OT Patient Education: Exercise program, Progress toward Goal/Update tx plan, Purpose of tx/functional activities, Safety issues Teaching Recipient: Patient Teaching Methods: Discussion Response to Teaching: Verbalize Understanding OT Short Term Goals Short Term Goals Time Frame: October 02, 2017 Toilet/Commode Transfer(FIM): 5 Shower Transfer(FIM): 5 1=Demonstrate adherence to instructed precautions during ADL tasks. 2=Patient will verbalize/demonstrate understanding of assistive devices/ modifications for ADL. 3=Patient will improve strength/tolerance for activity to enable patient to perform ADL's. OT Client Account Manager Goals [facility] Goals Time Frame: Oct 16, 2017 Eating (FIM): 7 Eating (QC): 6 Groomin Oral Hygiene (QC): 6 Bathing(FIM): 6 Shower/Bathe Self (QC): 6 Upper Body Dressing(FIM): 6 Upper Body Dressing (QC): 6 Lower Body Dressing(FIM): 6 Lower Body Dressing (QC): 6 On/Off Footwear (QC): 6 Toileting(FIM): 6 Toileting Hygiene (QC): 6 Toilet/Commode Transfer(FIM): 6 Toilet/Commode Transfer (QC): 6 Shower Transfer(FIM): 6 Additional Goals: 1-Demonstrate ADL Tasks, 2-Verbalize Understanding, 3- ImproveStrength/Sid 1=Demonstrate adherence to instructed precautions during ADL tasks. 2=Patient will verbalize/demonstrate understanding of assistive devices/ modifications for ADL. 3=Patient will improve strength/tolerance for activity to enable patient to perform ADL's. OT Education/Plan Problem List/Assessment Pt would benefit from skilled OT to increase his independence in basic self care Discharge Recommendations Plan/Recommendations: Continue POC Treatment Plan/Plan of Care Patient would benefit from OT for education, treatment and training to promote independence in ADL's, mobility, safety and/or upper extremity function for ADL' s. Plan of Care: ADL Retraining, Functional Mobility, Group Exercise/Act as Ind ( education, exercise, activity tolerance, socialization, safety awareness), UE Funct Exercise/Act, UE Neuromus Re-Ed/Coord Treatment Duration: Oct 16, 2017 Frequency: At least 5 of 7 days/Wk (IRF) Estimated Hrs Per Day: 1.5 hours per day Agreement: Yes Rehab Potential: Fair Time/GCodes Start Time: 13:00 Stop Time: 13:30 Total Time Billed (hr/min): 30 Billed Treatment Time visit, 30 minutes exercise PREETHI TORRES OT September 25, 2017 14:31
[2017-09-25 17:20] VITALS: BP 121/78
[2017-09-26 05:11] VITALS: BP 130/85
[2017-09-26] MEDS: MULTIVIT W/MINERALS TAB (THERAGRAN M) PO SCH (05:33)
[2017-09-26] MEDS: THIAMINE 100 MG (VITAMIN B-1) TAB PO SCH (05:33)
[2017-09-26] MEDS: LEVOTHYROXINE 100 MCG (LEVOTHROID) TAB PO SCH (05:33)
[2017-09-26] MEDS: DULoxetine 20 MG (CYMBALTA) CAP PO SCH ×2 (07:04→20:01)
[2017-09-26] MEDS: ENOXAPARIN 40 MG/0.4 ML (LOVENOX) SYR SC SCH (07:04)
[2017-09-26] MEDS: SENNA W/DOCUSATE (SENOKOT S) TABLET PO SCH ×2 (07:04→20:01)
[2017-09-26] MEDS: lisINopril 10 MG (PRINIVIL) TABLET PO SCH (07:04)
[2017-09-26] MEDS: FOLIC ACID 1 MG TAB PO SCH (07:04)
[2017-09-26] MEDS: QUEtiapine 200 MG (SEROquel) TAB IMMEDIATE RELEASE PO SCH ×3 (07:04→20:01)
[2017-09-26 07:06] VITALS: BP 145/89
--- NOTE | 2017-09-26 07:26 | Occupational Ther Daily Note ---
OT Current Status-Daily Note Subjective Pt sleeping in bed, woke easily. Pt c/o headache, reported to nrsg. Nrsg brought in medicine. Mental Status/Objective Functional [place] Measure 0=Not Assessed/NA 4=Minimal Assistance 1=Total Assistance 5=Supervision or Setup 2=Maximal Assistance 6=Modified [place] 3=Moderate Assistance 7=Complete [place] ADL-Treatment Functional [place] Measure 0=Not Assessed/NA 4=Minimal Assistance 1=Total Assistance 5=Supervision or Setup 2=Maximal Assistance 6=Modified [place] 3=Moderate Assistance 7=Complete IndependenceIRFPAI Quality Coding Scale 6 Independent with activity with or without an assistive device 5 Patient requires set up or clean up by helper. Patient completes activity by themselves 4 Supervision or touching assist (CGA). [place] provide cues , steadying assist 3 The helper provides less than half the effort to complete the activity 2 The helper provides more than half the effort to complete the activity 1 Dependent. The helper does all the effort to complete an activity 7 Patient refused to complete or attempt activity 9 The patient did not perform the activity before the current illness or injury 88 Not attempted due to Medical conditions or safety concerns Other Treatment Pt was educated on ARU description and expectations and what treatment this date will be. Pt verbalized understanding. Breakfast offered to help with nausea after meds were given. Pt stated that he just wanted to lay still until the medicine started working. Nrsg in room giving medications and taking vital signs, see nrsg report. Pt lying in bed with call light/phone in reach. All needs met in room. Education OT Patient Education: Other (ARU description/expectations) Teaching Recipient: Patient Teaching Methods: Discussion Response to Teaching: Verbalize Understanding OT Short Term Goals Short Term Goals Time Frame: October 02, 2017 Toilet/Commode Transfer(FIM): 5 Shower Transfer(FIM): 5 1=Demonstrate adherence to instructed precautions during ADL tasks. 2=Patient will verbalize/demonstrate understanding of assistive devices/ modifications for ADL. 3=Patient will improve strength/tolerance for activity to enable patient to perform ADL's. OT Long-Term Goals Long-Term Goals Time Frame: Oct 16, 2017 Eating (FIM): 7 Eating (QC): 6 Groomin Oral Hygiene (QC): 6 Bathing(FIM): 6 Shower/Bathe Self (QC): 6 Upper Body Dressing(FIM): 6 Upper Body Dressing (QC): 6 Lower Body Dressing(FIM): 6 Lower Body Dressing (QC): 6 On/Off Footwear (QC): 6 Toileting(FIM): 6 Toileting Hygiene (QC): 6 Toilet/Commode Transfer(FIM): 6 Toilet/Commode Transfer (QC): 6 Shower Transfer(FIM): 6 Additional Goals: 1-Demonstrate ADL Tasks, 2-Verbalize Understanding, 3- ImproveStrength/Sid 1=Demonstrate adherence to instructed precautions during ADL tasks. 2=Patient will verbalize/demonstrate understanding of assistive devices/ modifications for ADL. 3=Patient will improve strength/tolerance for activity to enable patient to perform ADL's. OT Education/Plan Problem List/Assessment Pt would benefit from skilled OT to increase his independence in basic self care Discharge Recommendations Plan/Recommendations: Continue POC Treatment Plan/Plan of Care Patient would benefit from OT for education, treatment and training to promote independence in ADL's, mobility, safety and/or upper extremity function for ADL' s. Plan of Care: ADL Retraining, Functional Mobility, Group Exercise/Act as Ind ( education, exercise, activity tolerance, socialization, safety awareness), UE Funct Exercise/Act, UE Neuromus Re-Ed/Coord Treatment Duration: Oct 16, 2017 Frequency: At least 5 of 7 days/Wk (IRF) Estimated Hrs Per Day: 1.5 hours per day Agreement: Yes Rehab Potential: Fair Time/GCodes Start Time: 06:45 Stop Time: 07:15 Total Time Billed (hr/min): 30 Billed Treatment Time 1 visit-FA 2 (30 min) PORTER STONE September 26, 2017 07:26
--- NOTE | 2017-09-26 09:03 | Occupational Ther Daily Note ---
OT Current Status-Daily Note Subjective Pt alert, lying in bed. Pt continued to c/o headache, 8/10 pain. Nrsg had given stronger medication for headache. Took BP in supine (151/100), sitting ( 142/97) and standing (127/97). Pt did agree to therapy. Mental Status/Objective Patient Orientation: Person, Place, Time, Situation Functional [place] Measure 0=Not Assessed/NA 4=Minimal Assistance 1=Total Assistance 5=Supervision or Setup 2=Maximal Assistance 6=Modified [place] 3=Moderate Assistance 7=Complete [place] ADL-Treatment OT/PT cotreat, pt's increased pain and decreased activity tolerance hinders pt' s ability to tolerate individual therapies. PT worked on functional mobility, ambulation and transfers. OT worked on ADLs and daily functional tasks. PT took over care of pt. All needs met. Functional [place] Measure 0=Not Assessed/NA 4=Minimal Assistance 1=Total Assistance 5=Supervision or Setup 2=Maximal Assistance 6=Modified [place] 3=Moderate Assistance 7=Complete IndependenceIRFPAI Quality Coding Scale 6 Independent with activity with or without an assistive device 5 Patient requires set up or clean up by helper. Patient completes activity by themselves 4 Supervision or touching assist (CGA). [place] provide cues , steadying assist 3 The helper provides less than half the effort to complete the activity 2 The helper provides more than half the effort to complete the activity 1 Dependent. The helper does all the effort to complete an activity 7 Patient refused to complete or attempt activity 9 The patient did not perform the activity before the current illness or injury 88 Not attempted due to Medical conditions or safety concerns Bathing (FIM): 4 (Using grabbar, hand held shower and shower bench pt is able to complete with SBA then fatigues easily and required assist to rinse and dry.) Bathing Location: L Arm, R Arm, L Upper Leg, R Upper Leg, L Lower Leg ( including foot), R Lower Leg (including foot), Chest, Abdomen, Buttocks, Perineal Area Shower/Bathe Self (QC): 3 Upper Body (FIM): 5 (After set up, pt is able to complete donning/doffing upper body clothing.) Upper Body Dressing (QC): 5 Lower Body Dressing (FIM): 5 (After set up, pt is able to complete donning/ doffing clothing with SBA.) Lower Body Dressing (QC): 4 On/Off Footwear (QC): 4 Toileting (FIM): 5 (SBA in standing to manipulate clothing. Cleanses self sitting on toilet.) Toileting Hygiene (QC): 4 Toilet/Commode Transfer (FIM): 5 (SBA using FWW, elevated toilet seat and grabbars.) Toilet Transfer (QC): 4 Shower Transfer(FIM): 5 (SBA using grabbars, shower bench and FWW.) OT Short Term Goals Short Term Goals Time Frame: October 02, 2017 Toilet/Commode Transfer(FIM): 5 Shower Transfer(FIM): 5 1=Demonstrate adherence to instructed precautions during ADL tasks. 2=Patient will verbalize/demonstrate understanding of assistive devices/ modifications for ADL. 3=Patient will improve strength/tolerance for activity to enable patient to perform ADL's. OT Haulage Boss Goals Chcf Goals Time Frame: Oct 16, 2017 Eating (FIM): 7 Eating (QC): 6 Groomin Oral Hygiene (QC): 6 Bathing(FIM): 6 Shower/Bathe Self (QC): 6 Upper Body Dressing(FIM): 6 Upper Body Dressing (QC): 6 Lower Body Dressing(FIM): 6 Lower Body Dressing (QC): 6 On/Off Footwear (QC): 6 Toileting(FIM): 6 Toileting Hygiene (QC): 6 Toilet/Commode Transfer(FIM): 6 Toilet/Commode Transfer (QC): 6 Shower Transfer(FIM): 6 Additional Goals: 1-Demonstrate ADL Tasks, 2-Verbalize Understanding, 3- ImproveStrength/Sid 1=Demonstrate adherence to instructed precautions during ADL tasks. 2=Patient will verbalize/demonstrate understanding of assistive devices/ modifications for ADL. 3=Patient will improve strength/tolerance for activity to enable patient to perform ADL's. OT Education/Plan Problem List/Assessment Pt would benefit from skilled OT to increase his independence in basic self care Discharge Recommendations Plan/Recommendations: Continue POC Treatment Plan/Plan of Care Patient would benefit from OT for education, treatment and training to promote independence in ADL's, mobility, safety and/or upper extremity function for ADL' s. Plan of Care: ADL Retraining, Functional Mobility, Group Exercise/Act as Ind ( education, exercise, activity tolerance, socialization, safety awareness), UE Funct Exercise/Act, UE Neuromus Re-Ed/Coord Treatment Duration: Oct 16, 2017 Frequency: At least 5 of 7 days/Wk (IRF) Estimated Hrs Per Day: 1.5 hours per day Agreement: Yes Rehab Potential: Fair Time/GCodes Start Time: 07:59 Stop Time: 08:59 Total Time Billed (hr/min): 60 Billed Treatment Time 1 visit-ADL 4 (60 min) co-treat 60 min with PT PORTER STONE September 26, 2017 09:03
--- NOTE | 2017-09-26 09:20 | Physical Therapy Daily Note ---
PT Daily Note-Current Subjective Agreeable to PT after much encouragement. Reporting a headache prior to treatment. Once he did start with therapy, he reports his headache did subside. Reports he is tired and is looking forward to resting this weekend. Pain Numeric Pain Scale: 8 Location Body Site: Head Pain Description: Ache Comment: As treatment progressed, he reported no pain. Mental Status Patient Orientation: Person, Place, Time, Situation Transfers Functional [place] Measure 0=Not Assessed/NA 4=Minimal Assistance 1=Total Assistance 5=Supervision or Setup 2=Maximal Assistance 6=Modified [place] 3=Moderate Assistance 7=Complete IndependenceIRFPAI Quality Coding Scale 6 Independent with activity with or without an assistive device 5 Patient requires set up or clean up by helper. Patient completes activity by themselves 4 Supervision or touching assist (CGA). [place] provide cues , steadying assist 3 The helper provides less than half the effort to complete the activity 2 The helper provides more than half the effort to complete the activity 1 Dependent. The helper does all the effort to complete an activity 7 Patient refused to complete or attempt activity 9 The patient did not perform the activity before the current illness or injury 88 Not attempted due to Medical conditions or safety concerns Transfers (B, C, W/C) (FIM): 4 (CGa for safety) Supine to/from Sit: 5 Sit to/from Stand: 4 (skilled cues for sequencing and hand placment) Bed to/from Chair: 4 Multiple sit to stand and SPT performed this visit as pt completed ADL"s with OT as well. Transferred on/off the toilet 2 times with CGA and skilled cues; on off the shower chair with multiple sit to stand transfers to cleanse himself. Sup to from sit several times to work on bed mobility. Gait Training Does the Patient Walk?: Yes Gait (FIM): 4 (CGA for safety. ) Distance: 25 ft x 2; 50 ft x 3; 150 ft x 2 Gait Assistive Device: FWW Slow gait that is slightly shuffled (i believe this is natural to him); he tends to walk with rounded shoulders and head forward; he can corrent with cues. No LOB episodes but has limited functional activity tolerance. Balance Picking up an Object (QC): 4 Exercises NuStep Minutes: 15 NuStep Workload: 2 (to increase functional strength and activity tolerance. ) Treatments Co treat with OT [id number] due to pt's need for additional cues for self care as well as skilled cues for functional transfers and mobilty to complete the self care tasks. 2 clinicians indicated to focus on 2 separate areas (self care and functional transfers.) Assessment Current Status: Good Progress Initially, pt resistant to PT/OT due to complaints of a headache, but he was given pain meds, therapy waited and upon return he was willing to try. He did will with skilled intervnetion and it was beneficial to co treat as OT could address the self care and PT could address mobility and provide cues and education with optimal transfers and mobility within his room. Once his headache had decreased, he was pleasnat and cooperative. PT Short Term Goals Short Term Goals Time Frame: October 02, 2017 Gait (FIM): 5 Gait Distance Comment: 200' Gait Level of Assist: 5 Gait Assistive Device: FWW PT Central Office Worker Goals Central Office Worker Goals PT Central Office Worker Goals Time Frame: Oct 16, 2017 Transfers (B,C,W/C) (FIM): 6 Sit to Lying (QC): 6 Lying-Sitting on Side/Bed(QC): 6 Sit to Stand (QC): 6 Rollin Roll Left to Right (QC): 6 Chair/Xqp-pr-Xwpat Xfer(QC): 6 Car Transfer (QC): 6 Gait (FIM): 6 Distance: 350' Walk 10 feet (QC): 6 Walk 10ft-Uneven Surface(QC): 6 Walk 50ft with 2 Turns (QC): 6 Walk 150 ft (QC): 6 Gait Level of Assist: 6 Gait Assistive Device: FWW Stairs (FIM): 5 # of Steps: 12 1 Step (curb) (QC): 4 4 Steps (QC): 4 12 Steps (QC): 4 Stairs Level Of Assist: 5 Picking up an Object (QC): 4 PT Plan Problem List Problem List: Activity Tolerance, Functional Strength, Safety, Balance, Gait, Transfer, Bed Mobility Treatment/Plan Treatment Plan: Continue Plan of Care Treatment Plan: Bed Mobility, Education, Functional Activity Sid, Functional Strength, Group Therapy, Gait, Safety, Therapeutic Exercise, Transfers Treatment Duration: Oct 16, 2017 Frequency: At least 5 of 7 days/Wk (IRF) Estimated Hrs Per Day: 1.5 hours per day Patient and/or Family Agrees t: Yes Safety Risks/Education Patient Education: Transfer Techniques, Safety Issues Teaching Recipient: Patient Teaching Methods: Demonstration, Discussion Response to Teaching: Return Demonstration, Reinforcement Needed Time/GCodes Time In: 759 Time Out: 930 Total Billed Treatment Time: 91 Total Billed Treatment visit Co treat with OT 60 (FA) Gt 16 EX 15 PORTER JIN PT September 26, 2017 09:20
[2017-09-26 18:10] VITALS: BP 134/84
[2017-09-27 05:13] VITALS: BP 143/87
[2017-09-27] MEDS: MULTIVIT W/MINERALS TAB (THERAGRAN M) PO SCH (06:02)
[2017-09-27] MEDS: LEVOTHYROXINE 100 MCG (LEVOTHROID) TAB PO SCH (06:02)
[2017-09-27] MEDS: THIAMINE 100 MG (VITAMIN B-1) TAB PO SCH (06:03)
[2017-09-27] MEDS: FOLIC ACID 1 MG TAB PO SCH (08:14)
[2017-09-27] MEDS: DULoxetine 20 MG (CYMBALTA) CAP PO SCH ×2 (08:14→20:34)
[2017-09-27] MEDS: SENNA W/DOCUSATE (SENOKOT S) TABLET PO SCH ×2 (08:15→20:34)
[2017-09-27] MEDS: QUEtiapine 200 MG (SEROquel) TAB IMMEDIATE RELEASE PO SCH ×3 (08:15→20:34)
[2017-09-27] MEDS: lisINopril 10 MG (PRINIVIL) TABLET PO SCH (08:16)
[2017-09-27] MEDS: ENOXAPARIN 40 MG/0.4 ML (LOVENOX) SYR SC SCH (08:17)
[2017-09-27 17:23] VITALS: BP 139/96
[2017-09-28 05:05] VITALS: BP 123/83
[2017-09-28] MEDS: MULTIVIT W/MINERALS TAB (THERAGRAN M) PO SCH (06:23)
[2017-09-28] MEDS: LEVOTHYROXINE 100 MCG (LEVOTHROID) TAB PO SCH (06:23)
[2017-09-28] MEDS: THIAMINE 100 MG (VITAMIN B-1) TAB PO SCH (06:23)
--- NOTE | 2017-09-28 08:24 | Progress Note (SOAP) ---
Subjective Time Seen by Provider: 08:20 Subjective/Events-last exam Patient feels constipated today. Patient feels weak.. Patient gets around with a walker by himself Objective Exam Vital Signs Date Time Temp Pulse Resp B/P (MAP) Pulse Ox O2 Delivery O2 Flow Rate FiO2 09/28/17 05:05 97.9 75 20 123/83 (96) 94 Room Air 09/27/17 17:23 96.4 78 20 139/96 (110) 95 Room Air I & O 09/28/17 07:00 Intake Total 650 ml Balance 650 ml Capillary Refill : Greater Than 3 Seconds General Appearance: No Apparent Distress, WD/WN Neck: Normal Inspection Respiratory: No Accessory Muscle Use, No Respiratory Distress Assessment/Plan Assessment/Plan Assess & Plan/Chief Complaint Acute encephalopathy. Debility. . 09/28/17. Debility. Constipation. Postop bacterial meningitis. Ethanol abuse. Tobaccoism. Clinical Quality Measures DVT/VTE Risk/Contraindication: Risk Factor Score Per Nursin RFS Level Per Nursing on Admit: 4+=Very High TRACY EB DO September 28, 2017 08:24
[2017-09-28] MEDS: DULoxetine 20 MG (CYMBALTA) CAP PO SCH ×2 (08:41→20:21)
[2017-09-28] MEDS: FOLIC ACID 1 MG TAB PO SCH (08:42)
[2017-09-28] MEDS: QUEtiapine 200 MG (SEROquel) TAB IMMEDIATE RELEASE PO SCH ×3 (08:42→20:21)
[2017-09-28] MEDS: SENNA W/DOCUSATE (SENOKOT S) TABLET PO SCH ×2 (08:42→20:21)
[2017-09-28] MEDS: ENOXAPARIN 40 MG/0.4 ML (LOVENOX) SYR SC SCH (08:42)
[2017-09-28] MEDS: lisINopril 10 MG (PRINIVIL) TABLET PO SCH (08:42)
--- NOTE | 2017-09-28 08:57 | Physical Therapy Daily Note ---
PT Daily Note-Current Subjective Patient in bed pre tx, agrees to PT, he states he has a small headache but is unrated. Patient states he needs to use the restroom. Appearance Patient in bed post tx with nurse call, phone, tray, all needs met. Mental Status Patient Orientation: Person, Situation Transfers Functional [place] Measure 0=Not Assessed/NA 4=Minimal Assistance 1=Total Assistance 5=Supervision or Setup 2=Maximal Assistance 6=Modified [place] 3=Moderate Assistance 7=Complete IndependenceIRFPAI Quality Coding Scale 6 Independent with activity with or without an assistive device 5 Patient requires set up or clean up by helper. Patient completes activity by themselves 4 Supervision or touching assist (CGA). [place] provide cues , steadying assist 3 The helper provides less than half the effort to complete the activity 2 The helper provides more than half the effort to complete the activity 1 Dependent. The helper does all the effort to complete an activity 7 Patient refused to complete or attempt activity 9 The patient did not perform the activity before the current illness or injury 88 Not attempted due to Medical conditions or safety concerns Transfers (B, C, W/C) (FIM): 5 Scootin Rollin Supine to/from Sit: 6 Sit to/from Stand: 5 Bed to/from Chair: 5 Patient moves quickly, impulsively Gait Training Gait (FIM): 5 Distance: 200'x2, 100' Gait Level of Assist: 5 Gait Persons Needed: 1 Gait Assistive Device: FWW Patient ambulates briskly and needs occasional cues for direction. He can get distracted and has moments of unsteadiness during these times but has not had a aviva LOB. Exercises Seated Therapy Exercises: Long arc quads, Hip flexion Seated Reps: 15 Standing: Hip Abduction, Heel/toe raises, Step-ups Standing Reps: 15 NuStep Minutes: 15 NuStep Workload: 4 Treatments bed mobility and transfers, ambulation, functional strengthening Assessment Current Status: Fair Progress Patient states "I'm exhausted". He needs rest breaks between every activity, slumps forward, poor posture. PT Short Term Goals Short Term Goals Time Frame: October 02, 2017 Gait (FIM): 5 Gait Distance Comment: 200' Gait Level of Assist: 5 Gait Assistive Device: FWW PT [place] Operator Goals Snf Goals PT Snf Goals Time Frame: Oct 16, 2017 Transfers (B,C,W/C) (FIM): 6 Sit to Lying (QC): 6 Lying-Sitting on Side/Bed(QC): 6 Sit to Stand (QC): 6 Rollin Roll Left to Right (QC): 6 Chair/Mxe-nl-Ibkxp Xfer(QC): 6 Car Transfer (QC): 6 Gait (FIM): 6 Distance: 350' Walk 10 feet (QC): 6 Walk 10ft-Uneven Surface(QC): 6 Walk 50ft with 2 Turns (QC): 6 Walk 150 ft (QC): 6 Gait Level of Assist: 6 Gait Assistive Device: FWW Stairs (FIM): 5 # of Steps: 12 1 Step (curb) (QC): 4 4 Steps (QC): 4 12 Steps (QC): 4 Stairs Level Of Assist: 5 Picking up an Object (QC): 4 PT Plan Problem List Problem List: Activity Tolerance, Functional Strength, Safety, Balance, Gait, Transfer, Bed Mobility Treatment/Plan Treatment Plan: Continue Plan of Care Treatment Plan: Bed Mobility, Education, Functional Activity Sid, Functional Strength, Group Therapy, Gait, Safety, Therapeutic Exercise, Transfers Treatment Duration: Oct 16, 2017 Frequency: 2 times per week Estimated Hrs Per Day: 1.5 hours per day Patient and/or Family Agrees t: Yes Safety Risks/Education Patient Education: Gait Training, Transfer Techniques, Correct Positioning, Safety Issues Teaching Recipient: Patient Teaching Methods: Demonstration, Discussion Response to Teaching: Reinforcement Needed Time/GCodes Time In: 0800 Time Out: 0900 Total Billed Treatment Time: 60 Total Billed Treatment 1 visit EX 35' GT 25' JANA SPRING PT September 28, 2017 08:57
[2017-09-28 09:15] VITALS: BP 120/83
--- NOTE | 2017-09-28 11:25 | Occupational Ther Daily Note ---
OT Current Status-Daily Note Subjective Pt. in bed. No pain reported. Appearance Pt. states that he can't hear very well. Mental Status/Objective Patient Orientation: Unable to Assess Functional [place] Measure 0=Not Assessed/NA 4=Minimal Assistance 1=Total Assistance 5=Supervision or Setup 2=Maximal Assistance 6=Modified [place] 3=Moderate Assistance 7=Complete [place] ADL-Treatment Functional [place] Measure 0=Not Assessed/NA 4=Minimal Assistance 1=Total Assistance 5=Supervision or Setup 2=Maximal Assistance 6=Modified [place] 3=Moderate Assistance 7=Complete IndependenceIRFPAI Quality Coding Scale 6 Independent with activity with or without an assistive device 5 Patient requires set up or clean up by helper. Patient completes activity by themselves 4 Supervision or touching assist (CGA). [place] provide cues , steadying assist 3 The helper provides less than half the effort to complete the activity 2 The helper provides more than half the effort to complete the activity 1 Dependent. The helper does all the effort to complete an activity 7 Patient refused to complete or attempt activity 9 The patient did not perform the activity before the current illness or injury 88 Not attempted due to Medical conditions or safety concerns Other Treatment Pt. in bed. Has returned from PT and is resting. OT introduces self and purpose, and offers to assist him shower, change clothes. Pt. states that he doesn't want to do that right now. OT offers to take him to the gym. Pt. does not understand purpose of this. OT explains rehab to him, and goes over history with him, as pt. states that he doesn't even know why he is here. Once OT educates him, pt. states that he remembers. OT offers to go over some things in the room. Pt. states that this would be good. Pt. is dressed but not sure if this is from last night or early this morning, as pt. continually states that he knows how to bathe and dress himself. Pt. is able to participate in cognitive tasks, with naming, sequencing, and abstract thought. Pt. does well on approximately 60% of material. States that he does not always understand the question, and has a hard time hearing. Pt. has matted ponytail. OT encourages him to feel this, and then lets him know that he can condition it in shower. Pt. states that he knows it is back there, but doesn't want to shower right now. States that he will just cut it off later if needed. All needs are met in pt's room. Will continue to encourage pt. to participate in all levels. Education OT Patient Education: Correct positioning, Progress toward Goal/Update tx plan , Purpose of tx/functional activities, Reviewed precautions, Rehab process, Safety issues Teaching Recipient: Patient Teaching Methods: Demonstration, Discussion Response to Teaching: Verbalize Understanding, Return Demonstration OT Short Term Goals Short Term Goals Time Frame: October 02, 2017 Toilet/Commode Transfer(FIM): 5 Shower Transfer(FIM): 5 1=Demonstrate adherence to instructed precautions during ADL tasks. 2=Patient will verbalize/demonstrate understanding of assistive devices/ modifications for ADL. 3=Patient will improve strength/tolerance for activity to enable patient to perform ADL's. OT Vp Patient Goals Care Home Goals Time Frame: Oct 16, 2017 Eating (FIM): 7 Eating (QC): 6 Groomin Oral Hygiene (QC): 6 Bathing(FIM): 6 Shower/Bathe Self (QC): 6 Upper Body Dressing(FIM): 6 Upper Body Dressing (QC): 6 Lower Body Dressing(FIM): 6 Lower Body Dressing (QC): 6 On/Off Footwear (QC): 6 Toileting(FIM): 6 Toileting Hygiene (QC): 6 Toilet/Commode Transfer(FIM): 6 Toilet/Commode Transfer (QC): 6 Shower Transfer(FIM): 6 Additional Goals: 1-Demonstrate ADL Tasks, 2-Verbalize Understanding, 3- ImproveStrength/Sid 1=Demonstrate adherence to instructed precautions during ADL tasks. 2=Patient will verbalize/demonstrate understanding of assistive devices/ modifications for ADL. 3=Patient will improve strength/tolerance for activity to enable patient to perform ADL's. OT Education/Plan Problem List/Assessment Assessment: Decreased Activ Tolerance, Dependent Transfers, Impaired Bed Mobility, Impaired Funct Balance, Impaired I ADL's, Impaired Self-Care Skills, Restricted Funct UE ROM Pt would benefit from skilled OT to increase his independence in basic self care Discharge Recommendations Plan/Recommendations: Continue POC Therapy D/C Recommendations: Home w/ Family Support Comment Discharge needs and goals to be determined. Treatment Plan/Plan of Care Treatment,Training & Education: Yes Patient would benefit from OT for education, treatment and training to promote independence in ADL's, mobility, safety and/or upper extremity function for ADL' s. Plan of Care: ADL Retraining, Caregiver Training, Cognitive Retraining, Functional Mobility, Group Exercise/Act as Ind Treatment Duration: Oct 16, 2017 Frequency: 5 times per week Estimated Hrs Per Day: 1.5 hours per day Agreement: Yes Rehab Potential: Fair Time/GCodes Start Time: 09:15 Stop Time: 10:15 Total Time Billed (hr/min): 60 Billed Treatment Time 1, FA x 4 MUKUND HAYWOOD OT September 28, 2017 11:25
--- NOTE | 2017-09-28 14:54 | Therapy Group Daily Note ---
Therapy Daily Group Note Patient Education Topic Other List Below (ARU description/expectations) Exercises LE Seated Exercise, UE Exercise Other/Notes Pt ambulated to therapy gym using FW for OT/PT group. Group consisted of introductions (name, place living, personal fact), socialization, UE/LE seated exercises with theraband, ARU description/expectations and current events activity. Pt able to introduce self appropriately and actively listened to peers introduce themselves. Pt verbalized understanding of ARU by answering questions. Pt contributed to discussions throughout group. Pt was able to answer current events questions in a Jeopardy format. Inspiring word to keep motivated to work with therapy. After therapy, pt sitting in recliner with feet up. Call light/phone in reach. All needs met in room. Start Time: 13:00 Stop Time: 14:05 Total Billed Treatment Time: 65 Total Billed Treatment 1-GRP PORTER STONE September 28, 2017 14:54
[2017-09-28 18:29] VITALS: BP 106/71
[2017-09-28] MEDS: MILK OF MAGNESIA 400 MG/5 ML 30 ML UDC PO PRN (18:38)
[2017-09-29] MEDS: THIAMINE 100 MG (VITAMIN B-1) TAB PO SCH (06:20)
[2017-09-29] MEDS: MULTIVIT W/MINERALS TAB (THERAGRAN M) PO SCH (06:20)
[2017-09-29] MEDS: LEVOTHYROXINE 100 MCG (LEVOTHROID) TAB PO SCH (06:20)
[2017-09-29 06:25] VITALS: BP 108/71
[2017-09-29 07:46] LABS: HEMOGLOBIN 17.1 G/DL (13.3-17.7); MEAN PLATELET VOLUME 8.8 FL (7.4-10.4); RED BLOOD COUNT 5.08 10^6/uL (4.35-5.85); RED CELL DISTRIBUTION WIDTH 12.6 % (10.0-14.5); WHITE BLOOD COUNT 19.9 10^3/uL (4.3-11.0)
[2017-09-29] MEDS: lisINopril 10 MG (PRINIVIL) TABLET PO SCH (08:01)
[2017-09-29] MEDS: SENNA W/DOCUSATE (SENOKOT S) TABLET PO SCH ×2 (08:01→20:03)
[2017-09-29] MEDS: FOLIC ACID 1 MG TAB PO SCH (08:01)
[2017-09-29] MEDS: DULoxetine 20 MG (CYMBALTA) CAP PO SCH (08:01)
[2017-09-29] MEDS: QUEtiapine 200 MG (SEROquel) TAB IMMEDIATE RELEASE PO SCH ×3 (08:01→20:04)
[2017-09-29] MEDS: MILK OF MAGNESIA 400 MG/5 ML 30 ML UDC PO PRN (08:02)
[2017-09-29] MEDS: ENOXAPARIN 40 MG/0.4 ML (LOVENOX) SYR SC SCH (08:02)
[2017-09-29 08:05] LABS: BUN/CREATININE RATIO 14; CALCIUM 10.4 MG/DL (8.5-10.1); CARBON DIOXIDE 22 MMOL/L (21-32); CHLORIDE 100 MMOL/L (98-107); GFR ESTIMATED > 60; GLUCOSE 102 MG/DL (70-105); SODIUM 133 MMOL/L (135-145)
--- NOTE | 2017-09-29 08:49 | Progress Note (SOAP) ---
Subjective Time Seen by Provider: 08:45 Subjective/Events-last exam Patient feeling better today. White blood cell count up to 19,000. To monitor this. Patient previously on vancomycin Objective Exam Vital Signs Date Time Temp Pulse Resp B/P (MAP) Pulse Ox O2 Delivery O2 Flow Rate FiO2 09/29/17 06:25 96.0 68 17 108/71 (83) 96 Room Air 09/28/17 21:00 Room Air 09/28/17 18:29 97.8 86 18 106/71 (83) 97 Room Air 09/28/17 09:15 87 18 120/83 (95) 96 Room Air I & O 09/29/17 07:00 Intake Total 1175 ml Balance 1175 ml Capillary Refill : Greater Than 3 Seconds General Appearance: No Apparent Distress, WD/WN HEENT: Normal ENT Inspection, Other (Heart a feeling) Neck: Normal Inspection Respiratory: Lungs Clear, No Accessory Muscle Use, No Respiratory Distress Cardiovascular: Regular Rate, Rhythm Gastrointestinal: non tender, soft Results Lab Laboratory Tests 09/29/17 07:40: White Blood Count 19.9H, Red Blood Count 5.08, Hemoglobin 17.1, Hematocrit 47, Mean Corpuscular Volume 92, Mean Corpuscular Hemoglobin 34, Mean Corpuscular Hemoglobin Concent 37H, Red Cell Distribution Width 12.6, Platelet Count 258, Mean Platelet Volume 8.8, Sodium Level 133L, Potassium Level 5.0, Chloride Level 100, Carbon Dioxide Level 22, Anion Gap 11, Blood Urea Nitrogen 13, Creatinine 0.90, Estimat Glomerular Filtration Rate > 60, BUN/Creatinine Ratio 14, Glucose Level 102, Calcium Level 10.4H Assessment/Plan Assessment/Plan Assess & Plan/Chief Complaint Acute encephalopathy. Debility. . 09/28/17. Debility. Constipation. Postop bacterial meningitis. Ethanol abuse. Tobaccoism.. . 09/29/17. Debility. Constipation. Leukocytosis. Ethanol abuse. Hard of hearing Clinical Quality Measures DVT/VTE Risk/Contraindication: Risk Factor Score Per Nursin RFS Level Per Nursing on Admit: 4+=Very High TRACY BE DO September 29, 2017 08:49
--- NOTE | 2017-09-29 09:00 | Physical Therapy Daily Note ---
PT Daily Note-Current Subjective Patient in bed pre tx, agrees reluctantly to PT, no complaints of pain. Patient states he needs to use the restroom and that he has not had a BM yet. Appearance Patient in bed post tx with nurse call, phone, tray, all needs met. Mental Status Patient Orientation: Person, Place, Situation Transfers Functional [place] Measure 0=Not Assessed/NA 4=Minimal Assistance 1=Total Assistance 5=Supervision or Setup 2=Maximal Assistance 6=Modified [place] 3=Moderate Assistance 7=Complete IndependenceIRFPAI Quality Coding Scale 6 Independent with activity with or without an assistive device 5 Patient requires set up or clean up by helper. Patient completes activity by themselves 4 Supervision or touching assist (CGA). [place] provide cues , steadying assist 3 The helper provides less than half the effort to complete the activity 2 The helper provides more than half the effort to complete the activity 1 Dependent. The helper does all the effort to complete an activity 7 Patient refused to complete or attempt activity 9 The patient did not perform the activity before the current illness or injury 88 Not attempted due to Medical conditions or safety concerns Transfers (B, C, W/C) (FIM): 5 Scootin Rollin Supine to/from Sit: 6 Sit to/from Stand: 5 Bed to/from Chair: 5 Patient needs cues for hand placement and safety but he rarely follows directions. Gait Training Gait (FIM): 5 Distance: 200'x2 Gait Level of Assist: 5 Gait Persons Needed: 1 Gait Assistive Device: FWW Exercises Standing: Hip Abduction, Heel/toe raises, Marching, Mini squats Standing Reps: 15 NuStep Minutes: 15 NuStep Workload: 4 Treatments bed mobility and transfers, ambulation, functional strengthening, patient was toileted once Assessment Current Status: Poor Progress Patient is impulsive and resistant to cues for hand placement and safety. Patient states he is exhausted and constantly tries to get therapist to stop therapy. Patient often refuses to participate further and needs to be encouraged to continue. Patient needs frequent rest breaks. He takes a lot of time to initiate activities. He has extremely poor motivation. PT Short Term Goals Short Term Goals Time Frame: October 02, 2017 Gait (FIM): 5 Gait Distance Comment: 200' Gait Level of Assist: 5 Gait Assistive Device: FWW PT Assisted Goals Assisted Goals PT Assisted Goals Time Frame: Oct 16, 2017 Transfers (B,C,W/C) (FIM): 6 Sit to Lying (QC): 6 Lying-Sitting on Side/Bed(QC): 6 Sit to Stand (QC): 6 Rollin Roll Left to Right (QC): 6 Chair/Wun-vy-Pneue Xfer(QC): 6 Car Transfer (QC): 6 Gait (FIM): 6 Distance: 350' Walk 10 feet (QC): 6 Walk 10ft-Uneven Surface(QC): 6 Walk 50ft with 2 Turns (QC): 6 Walk 150 ft (QC): 6 Gait Level of Assist: 6 Gait Assistive Device: FWW Stairs (FIM): 5 # of Steps: 12 1 Step (curb) (QC): 4 4 Steps (QC): 4 12 Steps (QC): 4 Stairs Level Of Assist: 5 Picking up an Object (QC): 4 PT Plan Problem List Problem List: Activity Tolerance, Functional Strength, Safety, Balance, Gait, Transfer Treatment/Plan Treatment Plan: Continue Plan of Care Treatment Plan: Bed Mobility, Education, Functional Activity Sid, Functional Strength, Group Therapy, Gait, Safety, Therapeutic Exercise, Transfers Treatment Duration: Oct 16, 2017 Frequency: 2 times per week Estimated Hrs Per Day: 1.5 hours per day Patient and/or Family Agrees t: Yes Safety Risks/Education Patient Education: Gait Training, Transfer Techniques, Correct Positioning, Safety Issues Teaching Recipient: Patient Teaching Methods: Demonstration, Discussion Response to Teaching: Reinforcement Needed Time/GCodes Time In: 800 Time Out: 900 Total Billed Treatment Time: 60 Total Billed Treatment 1 visit GT 30' EX 30' JANA SPRING PT September 29, 2017 09:00
[2017-09-29] MEDS: LINEZOLID (ZYVOX) 600 MG TAB PO SCH ×2 (10:09→20:03)
--- NOTE | 2017-09-29 10:09 | Diagnostic Imaging Report ---
INDICATION: Leukocytosis. TECHNIQUE: Single view chest at 9:29 AM. CORRELATION STUDY: None. FINDINGS: The heart size, mediastinal configuration, and pulmonary vascularity are within normal limits. Areas of atelectasis and/or less likely scarring about the left perihilar and basilar regions. No aviva lobar consolidation or infiltrate. IMPRESSION: Likely areas of atelectasis versus less likely scarring about the mid and lower left lung field. No focal lobar consolidation. Dictated by: Dictated on workstation # [id number]
--- NOTE | 2017-09-29 11:42 | Occupational Ther Daily Note ---
OT Current Status-Daily Note Mental Status/Objective Functional [place] Measure 0=Not Assessed/NA 4=Minimal Assistance 1=Total Assistance 5=Supervision or Setup 2=Maximal Assistance 6=Modified [place] 3=Moderate Assistance 7=Complete [place] ADL-Treatment Functional [place] Measure 0=Not Assessed/NA 4=Minimal Assistance 1=Total Assistance 5=Supervision or Setup 2=Maximal Assistance 6=Modified [place] 3=Moderate Assistance 7=Complete IndependenceIRFPAI Quality Coding Scale 6 Independent with activity with or without an assistive device 5 Patient requires set up or clean up by helper. Patient completes activity by themselves 4 Supervision or touching assist (CGA). [place] provide cues , steadying assist 3 The helper provides less than half the effort to complete the activity 2 The helper provides more than half the effort to complete the activity 1 Dependent. The helper does all the effort to complete an activity 7 Patient refused to complete or attempt activity 9 The patient did not perform the activity before the current illness or injury 88 Not attempted due to Medical conditions or safety concerns OT Short Term Goals Short Term Goals Time Frame: October 02, 2017 Toilet/Commode Transfer(FIM): 5 Shower Transfer(FIM): 5 1=Demonstrate adherence to instructed precautions during ADL tasks. 2=Patient will verbalize/demonstrate understanding of assistive devices/ modifications for ADL. 3=Patient will improve strength/tolerance for activity to enable patient to perform ADL's. OT Plug Making Operator Goals Plug Making Operator Goals Time Frame: Oct 16, 2017 Eating (FIM): 7 Eating (QC): 6 Groomin Oral Hygiene (QC): 6 Bathing(FIM): 6 Shower/Bathe Self (QC): 6 Upper Body Dressing(FIM): 6 Upper Body Dressing (QC): 6 Lower Body Dressing(FIM): 6 Lower Body Dressing (QC): 6 On/Off Footwear (QC): 6 Toileting(FIM): 6 Toileting Hygiene (QC): 6 Toilet/Commode Transfer(FIM): 6 Toilet/Commode Transfer (QC): 6 Shower Transfer(FIM): 6 Additional Goals: 1-Demonstrate ADL Tasks, 2-Verbalize Understanding, 3- ImproveStrength/Sid 1=Demonstrate adherence to instructed precautions during ADL tasks. 2=Patient will verbalize/demonstrate understanding of assistive devices/ modifications for ADL. 3=Patient will improve strength/tolerance for activity to enable patient to perform ADL's. OT Education/Plan Problem List/Assessment Pt would benefit from skilled OT to increase his independence in basic self care Treatment Plan/Plan of Care Patient would benefit from OT for education, treatment and training to promote independence in ADL's, mobility, safety and/or upper extremity function for ADL' s. Plan of Care: ADL Retraining, Caregiver Training, Cognitive Retraining, Functional Mobility, Group Exercise/Act as Ind Treatment Duration: Oct 16, 2017 Frequency: 5 times per week Estimated Hrs Per Day: 1.5 hours per day Agreement: Yes Rehab Potential: PORTER Prieto September 29, 2017 11:42
--- NOTE | 2017-09-29 12:31 | Occupational Ther Daily Note ---
OT Current Status-Daily Note Subjective Pt lying in bed with eyes closed. Pt requires encouragement to participate in OT. Pt does agree to therapy. No c/o pain only fatigue. Mental Status/Objective Patient Orientation: Person, Place, Time, Situation Functional [place] Measure 0=Not Assessed/NA 4=Minimal Assistance 1=Total Assistance 5=Supervision or Setup 2=Maximal Assistance 6=Modified [place] 3=Moderate Assistance 7=Complete [place] ADL-Treatment Pt agrees to ambulate to therapy gym to complete UE exercises, nrsg finds pt and x-ray is in pt's room for chest x-ray. Pt ambulates back to room and transfers into recliner with supervision. Pt then decides it would be better to take shower instead of walking back to therapy gym. Pt ambulates to bathroom with supervision using FWW and transfers to toilet using FWW and grabbars. Pt then doffs clothing and transfers into shower using FWW, grabbars and shower bench with supervision. Pt bathes self, rinses and dries self with supervision. Pt then requests to don hospital gown and have clothing washed. Pt ambulates back to room and transfers into chair to work on his matted hair. Transfers from chair to bed using FWW by self. Bed mobility by self. Functional [place] Measure 0=Not Assessed/NA 4=Minimal Assistance 1=Total Assistance 5=Supervision or Setup 2=Maximal Assistance 6=Modified [place] 3=Moderate Assistance 7=Complete IndependenceIRFPAI Quality Coding Scale 6 Independent with activity with or without an assistive device 5 Patient requires set up or clean up by helper. Patient completes activity by themselves 4 Supervision or touching assist (CGA). [place] provide cues , steadying assist 3 The helper provides less than half the effort to complete the activity 2 The helper provides more than half the effort to complete the activity 1 Dependent. The helper does all the effort to complete an activity 7 Patient refused to complete or attempt activity 9 The patient did not perform the activity before the current illness or injury 88 Not attempted due to Medical conditions or safety concerns Grooming (FIM): 5 (Supervision standing at sink to complete own grooming.) Oral Hygiene (QC): 4 Bathing (FIM): 5 Bathing Location: L Arm, R Arm, L Upper Leg, R Upper Leg, L Lower Leg ( including foot), R Lower Leg (including foot), Chest, Abdomen, Buttocks, Perineal Area Shower/Bathe Self (QC): 4 On/Off Footwear (QC): 6 (Dons/doffs by self.) Toileting (FIM): 5 Toileting Hygiene (QC): 4 Transfers (B, C, W/C) (FIM): 5 Toilet/Commode Transfer (FIM): 5 Toilet Transfer (QC): 4 Shower Transfer(FIM): 5 Other Treatment Lying supine in bed, pt complete UE exercises. Pt fatigues quickly with exercises and requires recovery breaks between sets of each exercise. Medium resistance theraband for UE exercises to increase strength and activity tolerance for daily functional tasks. After therapy, pt lying in bed with eyes closed. Call light/phone in reach. All needs met in room. OT Short Term Goals Short Term Goals Time Frame: October 02, 2017 Toilet/Commode Transfer(FIM): 5 Shower Transfer(FIM): 5 1=Demonstrate adherence to instructed precautions during ADL tasks. 2=Patient will verbalize/demonstrate understanding of assistive devices/ modifications for ADL. 3=Patient will improve strength/tolerance for activity to enable patient to perform ADL's. OT Group Home Goals Group Home Goals Time Frame: Oct 16, 2017 Eating (FIM): 7 Eating (QC): 6 Groomin Oral Hygiene (QC): 6 Bathing(FIM): 6 Shower/Bathe Self (QC): 6 Upper Body Dressing(FIM): 6 Upper Body Dressing (QC): 6 Lower Body Dressing(FIM): 6 Lower Body Dressing (QC): 6 On/Off Footwear (QC): 6 Toileting(FIM): 6 Toileting Hygiene (QC): 6 Toilet/Commode Transfer(FIM): 6 Toilet/Commode Transfer (QC): 6 Shower Transfer(FIM): 6 Additional Goals: 1-Demonstrate ADL Tasks, 2-Verbalize Understanding, 3- ImproveStrength/Sid 1=Demonstrate adherence to instructed precautions during ADL tasks. 2=Patient will verbalize/demonstrate understanding of assistive devices/ modifications for ADL. 3=Patient will improve strength/tolerance for activity to enable patient to perform ADL's. OT Education/Plan Problem List/Assessment Pt would benefit from skilled OT to increase his independence in basic self care Discharge Recommendations Plan/Recommendations: Continue POC Treatment Plan/Plan of Care Patient would benefit from OT for education, treatment and training to promote independence in ADL's, mobility, safety and/or upper extremity function for ADL' s. Plan of Care: ADL Retraining, Caregiver Training, Cognitive Retraining, Functional Mobility, Group Exercise/Act as Ind Treatment Duration: Oct 16, 2017 Frequency: 5 times per week Estimated Hrs Per Day: 1.5 hours per day Agreement: Yes Rehab Potential: Fair Time/GCodes Start Time: 09:00 Stop Time: 10:30 Total Time Billed (hr/min): 90 Billed Treatment Time 1 visit-ADL 5 (70 min) EX 1 (20 min) PORTER STONE September 29, 2017 12:31
--- NOTE | 2017-09-29 14:00 | Physical Therapy Daily Note ---
PT Daily Note-Current Subjective Patient in bed pre tx, agrees reluctantly to PT, no complaints of pain. Appearance Patient in bed post tx with nurse call, phone, tray, all needs met. Mental Status Patient Orientation: Person Transfers Functional [place] Measure 0=Not Assessed/NA 4=Minimal Assistance 1=Total Assistance 5=Supervision or Setup 2=Maximal Assistance 6=Modified [place] 3=Moderate Assistance 7=Complete IndependenceIRFPAI Quality Coding Scale 6 Independent with activity with or without an assistive device 5 Patient requires set up or clean up by helper. Patient completes activity by themselves 4 Supervision or touching assist (CGA). [place] provide cues , steadying assist 3 The helper provides less than half the effort to complete the activity 2 The helper provides more than half the effort to complete the activity 1 Dependent. The helper does all the effort to complete an activity 7 Patient refused to complete or attempt activity 9 The patient did not perform the activity before the current illness or injury 88 Not attempted due to Medical conditions or safety concerns Transfers (B, C, W/C) (FIM): 5 Scootin Rollin Supine to/from Sit: 6 Sit to/from Stand: 5 Bed to/from Chair: 5 Gait Training Gait (FIM): 5 Distance: 200'x2 Gait Level of Assist: 5 Gait Persons Needed: 1 Gait Assistive Device: FWW Exercises Seated Therapy Exercises: Long arc quads, Hip flexion, Hip abd/add Seated Reps: 20 Treatments bed mobility, transfers, ambulation, functional strengthening Assessment Current Status: Poor Progress No change in mobility. Patient fatigues very quickly and needs rest breaks between every activity. Poor motivation. PT Short Term Goals Short Term Goals Time Frame: October 02, 2017 Gait (FIM): 5 Gait Distance Comment: 200' Gait Level of Assist: 5 Gait Assistive Device: FWW PT Mcfp Goals Mortgage Processing Clerk Goals PT Mortgage Processing Clerk Goals Time Frame: Oct 16, 2017 Transfers (B,C,W/C) (FIM): 6 Sit to Lying (QC): 6 Lying-Sitting on Side/Bed(QC): 6 Sit to Stand (QC): 6 Rollin Roll Left to Right (QC): 6 Chair/Mct-pm-Anftk Xfer(QC): 6 Car Transfer (QC): 6 Gait (FIM): 6 Distance: 350' Walk 10 feet (QC): 6 Walk 10ft-Uneven Surface(QC): 6 Walk 50ft with 2 Turns (QC): 6 Walk 150 ft (QC): 6 Gait Level of Assist: 6 Gait Assistive Device: FWW Stairs (FIM): 5 # of Steps: 12 1 Step (curb) (QC): 4 4 Steps (QC): 4 12 Steps (QC): 4 Stairs Level Of Assist: 5 Picking up an Object (QC): 4 PT Plan Problem List Problem List: Activity Tolerance, Functional Strength, Safety, Balance, Gait, Transfer Treatment/Plan Treatment Plan: Continue Plan of Care Treatment Plan: Bed Mobility, Education, Functional Activity Sid, Functional Strength, Group Therapy, Gait, Safety, Therapeutic Exercise, Transfers Treatment Duration: Oct 16, 2017 Frequency: 2 times per week Estimated Hrs Per Day: 1.5 hours per day Patient and/or Family Agrees t: Yes Safety Risks/Education Patient Education: Gait Training, Transfer Techniques, Correct Positioning, Safety Issues Teaching Recipient: Patient Teaching Methods: Demonstration, Discussion Response to Teaching: Reinforcement Needed Time/GCodes Time In: 1330 Time Out: 1400 Total Billed Treatment Time: 30 Total Billed Treatment 1 visit GT 20' EX 10' JANA SPRING PT September 29, 2017 14:00
[2017-09-29] MEDS ORDERED: MAGNESIUM CITRATE 300 ML BTL PO NR (18:00)
[2017-09-29 18:01] VITALS: BP 104/64
[2017-09-30 05:24] VITALS: BP 115/78
[2017-09-30] MEDS: LEVOTHYROXINE 100 MCG (LEVOTHROID) TAB PO SCH (06:01)
[2017-09-30] MEDS: MULTIVIT W/MINERALS TAB (THERAGRAN M) PO SCH (06:02)
[2017-09-30] MEDS: THIAMINE 100 MG (VITAMIN B-1) TAB PO SCH (06:02)
[2017-09-30 06:11] LABS: BILIRUBIN,URINE NEGATIVE (NEGATIVE); CLARITY,URINE CLEAR; COLOR,URINE YELLOW; GLUCOSE, URINE (UA) NEGATIVE (NEGATIVE); KETONES,URINE NEGATIVE (NEGATIVE); LEUKOCYTE ESTERASE ,URINE 1+ (NEGATIVE); NITRITE,URINE NEGATIVE (NEGATIVE); PH,URINE 6 (5-9); PROTEIN,URINE 1+ (NEGATIVE); UROBILINOGEN,URINE NORMAL (NORMAL)
[2017-09-30 06:28] LABS: BASOPHILS # (AUTO) 0.1 10^3/uL (0.0-0.1); BASOPHILS % (AUTO) 0 % (0-10); EOSINOPHILS # (AUTO) 0.2 10^3/uL (0.0-0.3); EOSINOPHILS % (AUTO) 1 % (0-10); HEMATOCRIT 44 % (40-54); HEMOGLOBIN 15.9 G/DL (13.3-17.7); LYMPHOCYTES # (AUTO) 11.7 X 10^3 (1.0-4.0); LYMPHOCYTES % (AUTO) 57 % (12-44); MEAN CORPUSCULAR HEMOGLOBIN 34 PG (25-34); MEAN CORPUSCULAR HGB CONC 37 G/DL (32-36); MEAN CORPUSCULAR VOLUME 92 FL (80-99); MEAN PLATELET VOLUME 8.9 FL (7.4-10.4); MONOCYTES # (AUTO) 1.1 X 10^3 (0.0-1.0); MONOCYTES % (AUTO) 5 % (0-12); NEUTROPHILS # (AUTO) 7.6 X 10^3 (1.8-7.8); NEUTROPHILS % (AUTO) 37 % (42-75); PLATELET COUNT 242 10^3/uL (130-400); RED BLOOD COUNT 4.72 10^6/uL (4.35-5.85); RED CELL DISTRIBUTION WIDTH 12.3 % (10.0-14.5); WHITE BLOOD COUNT 20.7 10^3/uL (4.3-11.0)
[2017-09-30 06:52] LABS: BACTERIA,URINE NEGATIVE /HPF; SQUAMOUS EPITHELIAL CELL,UR 0-2 /HPF; WBC,URINE RARE /HPF
[2017-09-30] MEDS: FOLIC ACID 1 MG TAB PO SCH (08:13)
[2017-09-30] MEDS: lisINopril 10 MG (PRINIVIL) TABLET PO SCH (08:13)
[2017-09-30] MEDS: SENNA W/DOCUSATE (SENOKOT S) TABLET PO SCH ×2 (08:13→20:17)
[2017-09-30] MEDS: QUEtiapine 200 MG (SEROquel) TAB IMMEDIATE RELEASE PO SCH ×3 (08:13→20:17)
[2017-09-30] MEDS: ENOXAPARIN 40 MG/0.4 ML (LOVENOX) SYR SC SCH (08:13)
[2017-09-30] MEDS: LINEZOLID (ZYVOX) 600 MG TAB PO SCH ×2 (08:13→20:17)
--- NOTE | 2017-09-30 08:59 | Occupational Ther Daily Note ---
OT Current Status-Daily Note Subjective Pt alert, lying in bed. Pt agrees to therapy. No c/o pain. Pt states he wants to go home. He feels a lot better since his BM last night. Mental Status/Objective Patient Orientation: Person, Place, Time, Situation Functional [place] Measure 0=Not Assessed/NA 4=Minimal Assistance 1=Total Assistance 5=Supervision or Setup 2=Maximal Assistance 6=Modified [place] 3=Moderate Assistance 7=Complete [place] ADL-Treatment Pt is demonstrating ability to complete all ADLs by self. Pt rushes through each task and does not take safety into account. Pt also demonstrates that he is going to do things his way and does not use recommendations of therapists. Pt c/o back hurting throughout session and states that it has hurt for years. After therapy, pt lying in bed with call light/phone in reach. All needs met in room. Functional [place] Measure 0=Not Assessed/NA 4=Minimal Assistance 1=Total Assistance 5=Supervision or Setup 2=Maximal Assistance 6=Modified [place] 3=Moderate Assistance 7=Complete IndependenceIRFPAI Quality Coding Scale 6 Independent with activity with or without an assistive device 5 Patient requires set up or clean up by helper. Patient completes activity by themselves 4 Supervision or touching assist (CGA). [place] provide cues , steadying assist 3 The helper provides less than half the effort to complete the activity 2 The helper provides more than half the effort to complete the activity 1 Dependent. The helper does all the effort to complete an activity 7 Patient refused to complete or attempt activity 9 The patient did not perform the activity before the current illness or injury 88 Not attempted due to Medical conditions or safety concerns Eating (FIM): 7 (Sets self up and uses regular utensils to feed self and cut food.) Eating (QC): 6 Grooming (FIM): 7 (Pt pushes FWW away and uses sink counter to stabilize while completing own grooming.) Oral Hygiene (QC): 6 Bathing (FIM): 6 (Using grabbars) Bathing Location: L Arm, R Arm, L Upper Leg, R Upper Leg, L Lower Leg ( including foot), R Lower Leg (including foot), Chest, Abdomen, Buttocks, Perineal Area Shower/Bathe Self (QC): 6 Upper Body (FIM): 6 (Retrieved clothing with FWW, don/doff by self.) Upper Body Dressing (QC): 6 Lower Body Dressing (FIM): 6 (Retrieves clothing and don/doff by self using FWW. Safety concerns due to pt rushing to complete tasks.) Lower Body Dressing (QC): 6 On/Off Footwear (QC): 6 Toileting (FIM): 6 (Using FWW and grabbars, pt is able to complete by self.) Toileting Hygiene (QC): 6 Transfers (B, C, W/C) (FIM): 6 (Pt uses FWW and completes quickly.) Toilet/Commode Transfer (FIM): 6 (Using grabbars and FWW is able to complete.) Toilet Transfer (QC): 6 Shower Transfer(FIM): 6 (Using FWW, grabbars and shower bench pt is able to complete.) Other Treatment Pt completed arm bike 15 min duration at 20 prieto resistance, several breaks during 15 min, to increase strength and activity tolerance for daily functional tasks. Pt then ambulated back to room for shower using FWW. OT Short Term Goals Short Term Goals Time Frame: October 02, 2017 Toilet/Commode Transfer(FIM): 5 Shower Transfer(FIM): 5 1=Demonstrate adherence to instructed precautions during ADL tasks. 2=Patient will verbalize/demonstrate understanding of assistive devices/ modifications for ADL. 3=Patient will improve strength/tolerance for activity to enable patient to perform ADL's. OT Lathmaker Goals Lathmaker Goals Time Frame: Oct 16, 2017 Eating (FIM): 7 Eating (QC): 6 Groomin Oral Hygiene (QC): 6 Bathing(FIM): 6 Shower/Bathe Self (QC): 6 Upper Body Dressing(FIM): 6 Upper Body Dressing (QC): 6 Lower Body Dressing(FIM): 6 Lower Body Dressing (QC): 6 On/Off Footwear (QC): 6 Toileting(FIM): 6 Toileting Hygiene (QC): 6 Toilet/Commode Transfer(FIM): 6 Toilet/Commode Transfer (QC): 6 Shower Transfer(FIM): 6 Additional Goals: 1-Demonstrate ADL Tasks, 2-Verbalize Understanding, 3- ImproveStrength/Sid 1=Demonstrate adherence to instructed precautions during ADL tasks. 2=Patient will verbalize/demonstrate understanding of assistive devices/ modifications for ADL. 3=Patient will improve strength/tolerance for activity to enable patient to perform ADL's. OT Education/Plan Problem List/Assessment Pt would benefit from skilled OT to increase his independence in basic self care Discharge Recommendations Plan/Recommendations: Continue POC Treatment Plan/Plan of Care Patient would benefit from OT for education, treatment and training to promote independence in ADL's, mobility, safety and/or upper extremity function for ADL' s. Plan of Care: ADL Retraining, Caregiver Training, Cognitive Retraining, Functional Mobility, Group Exercise/Act as Ind Treatment Duration: Oct 16, 2017 Frequency: 5 times per week Estimated Hrs Per Day: 1.5 hours per day Agreement: Yes Rehab Potential: Fair Time/GCodes Start Time: 08:00 Stop Time: 09:00 Total Time Billed (hr/min): 60 Billed Treatment Time 1 visit-ADL 3 (40 min) EX 1 (20 min) PORTER STONE September 30, 2017 08:59
--- NOTE | 2017-09-30 09:05 | Progress Note (SOAP) ---
Subjective Time Seen by Provider: 09:03 Subjective/Events-last exam Patient feeling good today. White blood cell count 20,000. Patient has no complaints. Chest x-ray and urine clear. Objective Exam Vital Signs Date Time Temp Pulse Resp B/P (MAP) Pulse Ox O2 Delivery O2 Flow Rate FiO2 09/30/17 05:24 96.3 72 18 115/78 (90) 93 Room Air 09/29/17 20:07 Room Air 09/29/17 18:01 97.2 87 18 104/64 (77) 97 Room Air 09/29/17 09:50 Room Air I & O 09/30/17 07:00 Intake Total 1480 ml Balance 1480 ml Capillary Refill : Greater Than 3 Seconds General Appearance: No Apparent Distress, WD/WN Results Lab Laboratory Tests 09/30/17 06:14 Laboratory Tests 09/30/17 05:55: Urine Color YELLOW, Urine Clarity CLEAR, Urine pH 6, Urine Specific Worth 1.015L, Urine Protein 1+H, Urine Glucose (UA) NEGATIVE, Urine Ketones NEGATIVE, Urine Nitrite NEGATIVE, Urine Bilirubin NEGATIVE, Urine Urobilinogen NORMAL, Urine Leukocyte Esterase 1+H, Urine RBC (Auto) NEGATIVE, Urine RBC NONE, Urine WBC RARE, Urine Squamous Epithelial Cells 0-2, Urine Crystals NONE, Urine Bacteria NEGATIVE, Urine Casts PRESENT, Urine Hyaline Casts 10-25H, Urine Mucus MODERATEH, Urine Culture Indicated NO 09/30/17 06:14: White Blood Count 20.7H, Red Blood Count 4.72, Hemoglobin 15.9, Hematocrit 44, Mean Corpuscular Volume 92, Mean Corpuscular Hemoglobin 34, Mean Corpuscular Hemoglobin Concent 37H, Red Cell Distribution Width 12.3, Platelet Count 242, Mean Platelet Volume 8.9, Neutrophils (%) (Auto) 37L, Lymphocytes (%) (Auto) 57H , Monocytes (%) (Auto) 5, Eosinophils (%) (Auto) 1, Basophils (%) (Auto) 0, Neutrophils # (Auto) 7.6, Lymphocytes # (Auto) 11.7H, Monocytes # (Auto) 1.1H, Eosinophils # (Auto) 0.2, Basophils # (Auto) 0.1 Assessment/Plan Assessment/Plan Assess & Plan/Chief Complaint Acute encephalopathy. Debility. . 09/28/17. Debility. Constipation. Postop bacterial meningitis. Ethanol abuse. Tobaccoism.. . 09/29/17. Debility. Constipation. Leukocytosis. Ethanol abuse. Hard of hearing. . 09/30/17. Debility. Constipation. Leukocytosis. Ethanol abuse. Hard of hearing. Patient states she's feeling well Clinical Quality Measures DVT/VTE Risk/Contraindication: Risk Factor Score Per Nursin RFS Level Per Nursing on Admit: 4+=Very High TRACY BE DO September 30, 2017 09:05
--- NOTE | 2017-09-30 10:10 | Physical Therapy Daily Note ---
PT Daily Note-Current Subjective Pt. in bed ans resists getting up . States he just got back from doing therapy. States he really wants to go home today. This WHEEL CLEANER explained the FIM and expectations. Pt. then more cooperative as the importance of safety and balance was emphasized as a precursor to DC Pain Comment: pt. initially c/o of back pain but would not rate Mental Status Patient Orientation: Normal For Age Transfers Functional [place] Measure 0=Not Assessed/NA 4=Minimal Assistance 1=Total Assistance 5=Supervision or Setup 2=Maximal Assistance 6=Modified [place] 3=Moderate Assistance 7=Complete IndependenceIRFPAI Quality Coding Scale 6 Independent with activity with or without an assistive device 5 Patient requires set up or clean up by helper. Patient completes activity by themselves 4 Supervision or touching assist (CGA). [place] provide cues , steadying assist 3 The helper provides less than half the effort to complete the activity 2 The helper provides more than half the effort to complete the activity 1 Dependent. The helper does all the effort to complete an activity 7 Patient refused to complete or attempt activity 9 The patient did not perform the activity before the current illness or injury 88 Not attempted due to Medical conditions or safety concerns Transfers (B, C, W/C) (FIM): 6 Scootin Rollin Roll Left to Right (QC): 6 Supine to/from Sit: 6 Sit to/from Stand: 6 Sit to Lying (QC): 6 Sit to Stand (QC): 6 Chair/Iuj-nd-Ksfed Xfer(QC): 6 Bed to/from Chair: 6 Car Transfer (QC): 6 Gait Training Does the Patient Walk?: Yes Gait (FIM): 5 Distance (FIM): 3=150 ft (x2) Walk 10 feet (QC): 5 Walk 50 ft with 2 Turns(QC): 5 Walk 150 ft (QC): 5 Walking 10ft/uneven surface-QC: 5 Gait Level of Assist: 5 Gait Persons Needed: 1 Gait Assistive Device: FWW needs reminders for prudent and safe gait, turns etc Wheelchair Training Does the Pt Use a Wheelchair?: No Stair Training Stair Training: Handrails/: 2 handrails Stairs (FIM): 2 #of Steps: 4 1 Step (curb) (QC): 2 4 Steps (QC): 2 Stairs: Pattern: Step to Level of Assist: 4 up and down 4 steps using bilat railings and sequence instruction each step Balance Picking up an Object (QC): 5 Exercises Supine Ex: Bridging, Rolling, Heel Slides, Scooting, Straight leg raise, Hip abd/add Supine Reps: 12 Assessment Current Status: Good Progress pt. expresses he realizes he is at risk for falls, also explains that he wasnt able to get the meds he was prescribed after surgery in [place] and ended up in the ER as a result he feels PT Short Term Goals Short Term Goals Time Frame: October 02, 2017 Gait (FIM): 5 Gait Distance Comment: 200' Gait Level of Assist: 5 Gait Assistive Device: FWW PT Percussion Teacher Goals Percussion Teacher Goals PT Intermediate Goals Time Frame: Oct 16, 2017 Transfers (B,C,W/C) (FIM): 6 Sit to Lying (QC): 6 Lying-Sitting on Side/Bed(QC): 6 Sit to Stand (QC): 6 Rollin Roll Left to Right (QC): 6 Chair/Zmr-no-Hzltn Xfer(QC): 6 Car Transfer (QC): 6 Gait (FIM): 6 Distance: 350' Walk 10 feet (QC): 6 Walk 10ft-Uneven Surface(QC): 6 Walk 50ft with 2 Turns (QC): 6 Walk 150 ft (QC): 6 Gait Level of Assist: 6 Gait Assistive Device: FWW Stairs (FIM): 5 # of Steps: 12 1 Step (curb) (QC): 4 4 Steps (QC): 4 12 Steps (QC): 4 Stairs Level Of Assist: 5 Picking up an Object (QC): 4 PT Plan Treatment/Plan Treatment Plan: Continue Plan of Care Treatment Plan: Bed Mobility, Education, Functional Activity Sid, Functional Strength, Group Therapy, Gait, Safety, Therapeutic Exercise, Transfers Treatment Duration: Oct 16, 2017 Frequency: 2 times per week Estimated Hrs Per Day: 1.5 hours per day Patient and/or Family Agrees t: Yes Safety Risks/Education Patient Education: Gait Training, Transfer Techniques, Steps, Correct Positioning, Disease Process, Safety Issues Teaching Recipient: Patient Teaching Methods: Demonstration, Discussion Response to Teaching: Verbalize Understanding, Return Demonstration, Reinforcement Needed Time/GCodes Time In: 900 Time Out: 1000 Total Billed Treatment Time: 60 Total Billed Treatment 1,GT20m,FA25m,EX15m G Codes Necessary: HARRY Mckeon WHEEL CLEANER September 30, 2017 10:10
[2017-09-30 12:13] VITALS: BP 106/57
--- NOTE | 2017-09-30 14:28 | Physical Therapy Daily Note ---
PT Daily Note-Current Subjective Pt. approached for group therapy. Pt. responds " The ONLY thing I want to hear from you is that Im dismissed!!! " F___ no, Im not going to be cooperative, get out, f___ you"! Mental Status pt. agitated, belligerent, wants only to DC, uncooperative Transfers Functional [place] Measure 0=Not Assessed/NA 4=Minimal Assistance 1=Total Assistance 5=Supervision or Setup 2=Maximal Assistance 6=Modified [place] 3=Moderate Assistance 7=Complete IndependenceIRFPAI Quality Coding Scale 6 Independent with activity with or without an assistive device 5 Patient requires set up or clean up by helper. Patient completes activity by themselves 4 Supervision or touching assist (CGA). [place] provide cues , steadying assist 3 The helper provides less than half the effort to complete the activity 2 The helper provides more than half the effort to complete the activity 1 Dependent. The helper does all the effort to complete an activity 7 Patient refused to complete or attempt activity 9 The patient did not perform the activity before the current illness or injury 88 Not attempted due to Medical conditions or safety concerns Assessment Current Status: Refused Treatment PT Short Term Goals Short Term Goals Time Frame: October 02, 2017 Gait (FIM): 5 Gait Distance Comment: 200' Gait Level of Assist: 5 Gait Assistive Device: FWW PT Rigger Third Goals Rigger Third Goals PT Usp Goals Time Frame: Oct 16, 2017 Transfers (B,C,W/C) (FIM): 6 Sit to Lying (QC): 6 Lying-Sitting on Side/Bed(QC): 6 Sit to Stand (QC): 6 Rollin Roll Left to Right (QC): 6 Chair/Wnc-kr-Zdjto Xfer(QC): 6 Car Transfer (QC): 6 Gait (FIM): 6 Distance: 350' Walk 10 feet (QC): 6 Walk 10ft-Uneven Surface(QC): 6 Walk 50ft with 2 Turns (QC): 6 Walk 150 ft (QC): 6 Gait Level of Assist: 6 Gait Assistive Device: FWW Stairs (FIM): 5 # of Steps: 12 1 Step (curb) (QC): 4 4 Steps (QC): 4 12 Steps (QC): 4 Stairs Level Of Assist: 5 Picking up an Object (QC): 4 PT Plan Treatment/Plan Treatment Plan: Continue Plan of Care Treatment Plan: Bed Mobility, Education, Functional Activity Sid, Functional Strength, Group Therapy, Gait, Safety, Therapeutic Exercise, Transfers Treatment Duration: Oct 16, 2017 Frequency: 2 times per week Estimated Hrs Per Day: 1.5 hours per day Patient and/or Family Agrees t: Yes Time/GCodes Time In: 1255 Time Out: 1257 Total Billed Treatment Time: 2 Total Billed Treatment no Rx, no Chg G Codes Necessary: No HARRY SHELTON HOUSEKEEPING CLEANER September 30, 2017 14:28
[2017-09-30] MEDS ORDERED: THIA100T7 PO (15:24)
[2017-09-30] MEDS ORDERED: Multivitamins/Minerals Therap PO (15:24)
[2017-09-30] MEDS ORDERED: FOLI1TAB24 PO (15:24)
[2017-09-30] MEDS ORDERED: LINE600T5 PO (15:24)
[2017-09-30 18:00] VITALS: BP 111/64
[2017-10-01] MEDS: THIAMINE 100 MG (VITAMIN B-1) TAB PO SCH (05:38)
[2017-10-01] MEDS: LEVOTHYROXINE 100 MCG (LEVOTHROID) TAB PO SCH (05:39)
[2017-10-01] MEDS: MULTIVIT W/MINERALS TAB (THERAGRAN M) PO SCH (05:39)
[2017-10-01 05:43] VITALS: BP 103/62
[2017-10-01 05:57] LABS: BASOPHILS # (AUTO) 0.1 10^3/uL (0.0-0.1); BASOPHILS % (AUTO) 0 % (0-10); EOSINOPHILS # (AUTO) 0.2 10^3/uL (0.0-0.3); EOSINOPHILS % (AUTO) 1 % (0-10); HEMATOCRIT 43 % (40-54); HEMOGLOBIN 15.8 G/DL (13.3-17.7); LYMPHOCYTES # (AUTO) 12.9 X 10^3 (1.0-4.0); LYMPHOCYTES % (AUTO) 65 % (12-44); MEAN CORPUSCULAR HEMOGLOBIN 34 PG (25-34); MEAN CORPUSCULAR HGB CONC 37 G/DL (32-36); MEAN CORPUSCULAR VOLUME 92 FL (80-99); MEAN PLATELET VOLUME 8.8 FL (7.4-10.4); MONOCYTES % (AUTO) 5 % (0-12); NEUTROPHILS # (AUTO) 5.7 X 10^3 (1.8-7.8); NEUTROPHILS % (AUTO) 29 % (42-75); PLATELET COUNT 229 10^3/uL (130-400); RED BLOOD COUNT 4.66 10^6/uL (4.35-5.85); RED CELL DISTRIBUTION WIDTH 12.5 % (10.0-14.5); WHITE BLOOD COUNT 19.8 10^3/uL (4.3-11.0)
[2017-10-01 06:21] LABS: BAND NEUTROPHILS 0 %; BASOPHILS % (MANUAL) 0 %; EOSINOPHILS % (MANUAL) 0 %; LYMPHOCYTES % (MANUAL) 52 %; MONOCYTES % (MANUAL) 6 %; NEUTROPHILS % (MANUAL) 34 %; REACTIVE LYMPHOCYTES 8 %; SMUDGE CELLS SLIGHT
[2017-10-01] MEDS: QUEtiapine 200 MG (SEROquel) TAB IMMEDIATE RELEASE PO SCH (08:29)
[2017-10-01] MEDS: FOLIC ACID 1 MG TAB PO SCH (08:29)
[2017-10-01] MEDS: LINEZOLID (ZYVOX) 600 MG TAB PO SCH (08:29)
[2017-10-01] MEDS: lisINopril 10 MG (PRINIVIL) TABLET PO SCH (08:29)
[2017-10-01] MEDS: SENNA W/DOCUSATE (SENOKOT S) TABLET PO SCH (08:30)
[2017-10-01] MEDS: ENOXAPARIN 40 MG/0.4 ML (LOVENOX) SYR SC SCH (08:30)
--- NOTE | 2017-10-01 08:31 | Progress Note (SOAP) ---
Subjective Time Seen by Provider: 08:25 Subjective/Events-last exam Patient feeling better today. Patient has no complaints. Patient to be discharged today. Patient to be seen by his own doctor in [place]. White blood cell count has stabilized and starting to come down. Blood cultures negative. Chest x-ray negative. UA negative Objective Exam Vital Signs Date Time Temp Pulse Resp B/P (MAP) Pulse Ox O2 Delivery O2 Flow Rate FiO2 10/01/17 08:24 Room Air 10/01/17 05:43 98.1 73 18 103/62 (76) 93 Room Air 09/30/17 20:10 Room Air 09/30/17 18:00 97.7 84 18 111/64 (80) 96 Room Air 09/30/17 12:13 97.6 86 18 106/57 (73) 95 Room Air 09/30/17 09:00 Room Air I & O 10/01/17 07:00 Intake Total 1000 ml Balance 1000 ml Capillary Refill : Greater Than 3 Seconds General Appearance: No Apparent Distress, WD/WN Results Lab Laboratory Tests 10/01/17 05:50: White Blood Count 19.8H, Red Blood Count 4.66, Hemoglobin 15.8, Hematocrit 43, Mean Corpuscular Volume 92, Mean Corpuscular Hemoglobin 34, Mean Corpuscular Hemoglobin Concent 37H, Red Cell Distribution Width 12.5, Platelet Count 229, Mean Platelet Volume 8.8, Neutrophils (%) (Auto) 29L, Lymphocytes (%) (Auto) 65H , Monocytes (%) (Auto) 5, Eosinophils (%) (Auto) 1, Basophils (%) (Auto) 0, Neutrophils # (Auto) 5.7, Lymphocytes # (Auto) 12.9H, Monocytes # (Auto) 1.0, Eosinophils # (Auto) 0.2, Basophils # (Auto) 0.1, Neutrophils % (Manual) 34, Lymphocytes % (Manual) 52, Monocytes % (Manual) 6, Eosinophils % (Manual) 0, Basophils % (Manual) 0, Band Neutrophils 0, Reactive Lymphocytes 8, Smudge Cells SLIGHT Microbiology 09/29/17 Blood Culture - Preliminary, Resulted No growth Assessment/Plan Assessment/Plan Assess & Plan/Chief Complaint Acute encephalopathy. Debility. . 09/28/17. Debility. Constipation. Postop bacterial meningitis. Ethanol abuse. Tobaccoism.. . 09/29/17. Debility. Constipation. Leukocytosis. Ethanol abuse. Hard of hearing. . 09/30/17. Debility. Constipation. Leukocytosis. Ethanol abuse. Hard of hearing. Patient states she's feeling well . . 10/01/17. Debility. Constipation. Leukocytosis has plateaued and starting to come down. Ethanol abuse. Hard of hearing. Patient to go home today. Patient is see his family physician this morning Clinical Quality Measures DVT/VTE Risk/Contraindication: Risk Factor Score Per Nursin RFS Level Per Nursing on Admit: 4+=Very High TRACY BE DO October 01, 2017 08:31
[2017-10-01 08:45] VITALS: BP 112/65
--- NOTE | 2017-10-01 10:21 | Therapy Team Discharge Summary ---
Therapy Discharge Summary Discharge Recommendations Date of Discharge October 01, 2017 at 08:45 Therapy D/C Recommendations: Home w/ Family Support Physical Therapy Patient came to rehab with encephalopathy. Upon evaluation patient performed bed mobility and supine to sit and sit to stand with SBA, stand pivot transfer with CGA, car transfer with CGA, ambulated 150' with a rolling walker with CGA, including 50' with at least 2 turns of 90 degrees and 10' over an uneven surface , and went up and down 4 steps using 2 handrails with CGA. Patient has been performing bed mobility and transfer training, balance and endurance training, functional strengthening, stair training, gait training, and education. Patient has made fair progress but has only met his halfway goals for bed mobility and transfers. Now, patient performs bed mobility and transfers with mod I, car transfer with mod I, ambulates 150' with a rolling walker with SBA ( including 50' with at least 2 turns of 90 degrees and 10' over an uneven surface ), can petroleum products district supervisor and object from the floor with SBA, and can go up and down 4 steps using 2 handrails with CGA. Patient is discharging from this facility today and will be discharged from PT now. Occupational Therapy Decreased Activ Tolerance, Dependent Transfers, Impaired Bed Mobility, Impaired Funct Balance, Impaired I ADL's, Impaired Self-Care Skills, Restricted Funct UE ROM PT Correction Goals Correction Goals PT Pot Holder Binder Goals Time Frame: Oct 16, 2017 Transfers (B,C,W/C) (FIM): 6 Roll Left to Right (QC): 6 Sit to Lying (QC): 6 Lying-Sitting on Side/Bed(QC): 6 Sit to Stand (QC): 6 Chair/Sja-nc-Jeakn Xfer(QC): 6 Car Transfer (QC): 6 Gait (FIM): 6 Distance: 350' Walk 10 feet (QC): 6 Walk 10ft-Uneven Surface(QC): 6 Walk 50ft with 2 Turns (QC): 6 Walk 150 ft (QC): 6 Gait Level of Assist: 6 Gait Assistive Device: FWW Stairs (FIM): 5 # of Steps: 12 1 Step (curb) (QC): 4 4 Steps (QC): 4 12 Steps (QC): 4 Stairs Level Of Assist: 5 Picking up an Object (QC): 4 OT Pot Holder Binder Goals Correction Goals Time Frame: Oct 16, 2017 Eating (FIM): 7 Eating (QC): 6 Oral Hygiene (QC): 6 Grooming(FIM): 6 Bathing(FIM): 6 Shower/Bathe Self (QC): 6 Upper Body Dressing(FIM): 6 Upper Body Dressing (QC): 6 Lower Body Dressing(FIM): 6 Lower Body Dressing (QC): 6 On/Off Footwear (QC): 6 Toileting(FIM): 6 Toileting Hygiene (QC): 6 Toilet/Commode Transfer(FIM): 6 Toilet/Commode Transfer (QC): 6 Shower Transfer(FIM): 6 Additional Goals: 1-Demonstrate ADL Tasks, 2-Verbalize Understanding, 3- ImproveStrength/Sid 1=Demonstrate adherence to instructed precautions during ADL tasks. 2=Patient will verbalize/demonstrate understanding of assistive devices/ modifications for ADL. 3=Patient will improve strength/tolerance for activity to enable patient to perform ADL's. JANA SPRING PT October 01, 2017 10:21
--- NOTE | 2017-10-01 13:50 | Therapy Team Discharge Summary ---
Therapy Discharge Summary Discharge Recommendations Date of Discharge October 01, 2017 at 08:45 Therapy D/C Recommendations: Home w/ Family Support Occupational Therapy Pt seen for skilled OT to increase his independence in basic self care after surgery for schwannoma removal and meningitis. On admission he was independent with eating, needed setup for grooming, SBA for dressing, toileting, toilet transfer and min assist with bathing. By discharge he had progressed to independent with eating and grooming and modified independent with bathing, dressing, toileting, shower and toilet transfers. He rushed through ADLs and had decreased safety awareness. See tx plan for goals met. No continued OT is recommended. Decreased Activ Tolerance, Dependent Transfers, Impaired Bed Mobility, Impaired Funct Balance, Impaired I ADL's, Impaired Self-Care Skills, Restricted Funct UE ROM PT Alf Goals Puppet Maker Goals PT Puppet Maker Goals Time Frame: Oct 16, 2017 Transfers (B,C,W/C) (FIM): 6 Roll Left to Right (QC): 6 Sit to Lying (QC): 6 Lying-Sitting on Side/Bed(QC): 6 Sit to Stand (QC): 6 Chair/Yno-oa-Xmtsv Xfer(QC): 6 Car Transfer (QC): 6 Gait (FIM): 6 Distance: 350' Walk 10 feet (QC): 6 Walk 10ft-Uneven Surface(QC): 6 Walk 50ft with 2 Turns (QC): 6 Walk 150 ft (QC): 6 Gait Level of Assist: 6 Gait Assistive Device: FWW Stairs (FIM): 5 # of Steps: 12 1 Step (curb) (QC): 4 4 Steps (QC): 4 12 Steps (QC): 4 Stairs Level Of Assist: 5 Picking up an Object (QC): 4 OT Alf Goals Puppet Maker Goals Time Frame: Oct 16, 2017 Eating (FIM): 7 (met 5-23-18) Eating (QC): 6 (met 5-23-18) Oral Hygiene (QC): 6 (met 5-23-18) Grooming(FIM): 6 (met 5-23-18) Bathing(FIM): 6 (met 5-23-18) Shower/Bathe Self (QC): 6 (met 5-23-18) Upper Body Dressing(FIM): 6 (met 5-23-18) Upper Body Dressing (QC): 6 (met 09-30-18) Lower Body Dressing(FIM): 6 (met 18) Lower Body Dressing (QC): 6 (met 09-30-17) On/Off Footwear (QC): 6 (met 09-30-17) Toileting(FIM): 6 (met 09-30-17) Toileting Hygiene (QC): 6 (met 09-30-17) Toilet/Commode Transfer(FIM): 6 (met 09-30-17) Toilet/Commode Transfer (QC): 6 (met 09-30-17) Shower Transfer(FIM): 6 (met 09-30-17) Additional Goals: 1-Demonstrate ADL Tasks, 2-Verbalize Understanding, 3- ImproveStrength/Sid 1=Demonstrate adherence to instructed precautions during ADL tasks. 2=Patient will verbalize/demonstrate understanding of assistive devices/ modifications for ADL. 3=Patient will improve strength/tolerance for activity to enable patient to perform ADL's. PREETHI TORRES OT October 01, 2017 13:50
--- NOTE | 2017-10-02 14:21 | Therapy Team Discharge Summary ---
Therapy Discharge Summary Discharge Recommendations Date of Discharge October 01, 2017 at 08:45 Therapy D/C Recommendations: Home w/ Family Support Occupational Therapy Pt. seen by occupational therapy to increase overall strength and independence. Pt. had difficulty with participation, and ultimately requested to leave before scheduled date. Pt. did meet all ADL goals, and discharged to home of family. No further OT as pt. is not compliant. Decreased Activ Tolerance, Impaired I ADL's, Impaired Self-Care Skills PT Penitentiary Goals Correctional Supervisor Lieutenant Goals PT Penitentiary Goals Time Frame: Oct 16, 2017 Transfers (B,C,W/C) (FIM): 6 Roll Left to Right (QC): 6 Sit to Lying (QC): 6 Lying-Sitting on Side/Bed(QC): 6 Sit to Stand (QC): 6 Chair/Dlh-qg-Kcbei Xfer(QC): 6 Car Transfer (QC): 6 Gait (FIM): 6 Distance: 350' Walk 10 feet (QC): 6 Walk 10ft-Uneven Surface(QC): 6 Walk 50ft with 2 Turns (QC): 6 Walk 150 ft (QC): 6 Gait Level of Assist: 6 Gait Assistive Device: FWW Stairs (FIM): 5 # of Steps: 12 1 Step (curb) (QC): 4 4 Steps (QC): 4 12 Steps (QC): 4 Stairs Level Of Assist: 5 Picking up an Object (QC): 4 OT Penitentiary Goals Penitentiary Goals Time Frame: Oct 16, 2017 Eating (FIM): 7 (met 5-23-18) Eating (QC): 6 (met 5-23-18) Oral Hygiene (QC): 6 (met 5-23-18) Grooming(FIM): 6 (met 5-23-18) Bathing(FIM): 6 (met 5-23-18) Shower/Bathe Self (QC): 6 (met 5-23-18) Upper Body Dressing(FIM): 6 (met 5-23-18) Upper Body Dressing (QC): 6 (met 5-23-18) Lower Body Dressing(FIM): 6 (met 5-23-18) Lower Body Dressing (QC): 6 (met 5-23-18) On/Off Footwear (QC): 6 (met 5-23-18) Toileting(FIM): 6 (met 5-23-18) Toileting Hygiene (QC): 6 (met 09-30-18) Toilet/Commode Transfer(FIM): 6 (met 09-30-18) Toilet/Commode Transfer (QC): 6 (met 09-30-18) Shower Transfer(FIM): 6 (met 18) Additional Goals: 1-Demonstrate ADL Tasks, 2-Verbalize Understanding, 3- ImproveStrength/Sid 1=Demonstrate adherence to instructed precautions during ADL tasks. 2=Patient will verbalize/demonstrate understanding of assistive devices/ modifications for ADL. 3=Patient will improve strength/tolerance for activity to enable patient to perform ADL's. MKUUND HAYWOOD OT October 02, 2017 14:21
--- NOTE | 2017-10-21 05:17 | DISCHARGE SUMMARY ---
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. The patient had an intraoperative bradycardic and asystolic pause for about 30 seconds, but ultimately inpatient workup was negative. The patient was discharged in good condition to home. The patient presented to [place] ED on 09/15/2017 with nausea, vomiting. The patient apparently was not taking his steroid prescription. He was provided with a new prescription, but then presented again to ED with headaches, nausea, vomiting altered medical status associated with agitation and combativeness. The patient required intubation and sedation and was transferred to [facility] on 09/17/2017. He was found to have an acute encephalopathy secondary to bacterial meningitis. The patient was treated with antibiotics. Clinically, he was improving, but left with general debilitation from all this and was referred to inpatient rehabilitation unit at [facility] so as to be closer to home. He is a retired [employer]. He complains of complete hearing loss on the left and partial hearing loss on the right. He has 2 adult sons that live nearby. He is single. PAST MEDICAL HISTORY: Ethanol abuse, anxiety disorder, bipolar disorder, colitis, generalized headaches, hypothyroidism, on replacement, tobacco abuse, thyroidectomy for goiter in 1988, tonsillectomy in 1969, finger surgery for right broken thumb with pin placed and then removed, vasectomy. TOBACCO HISTORY: Two packs per day for 30 years. MEDICAL COURSE: The patient was followed by Dr. Davis and Nikki while on rehab unit. He did have a leukocytosis, but blood cultures and UA were negative. Chest x-ray did reveal some evidence of possible atelectasis versus scarring at the bases. The patient was provided with treatments and this improved. He was afebrile during his stay. His pulse was 78 on 09/27/2017, respirations 20, blood pressure 139/96, O2 sat 95% on room air. CBC on 10/01/2017 showed a WBC of 19.8 down from 20.7 on 09/30/2017. He will have followup with his PCP in [place] regarding this the day of discharge. His H and H was 15.8/43 on 10/01/2017, platelet count 229 K. Serum sodium stable at 133 on 09/29/2017, calcium mildly elevated at 10.4 on 09/29/2017. The patient may have followup labs with his PCP in [place], [place]. A UA was negative on 09/30/2017. Blood cultures x2 showed no growth. REHABILITATION COURSE: OT notes upon admission, he was independent with eating, needed set up for grooming, standby assist for dressing, toileting, toilet transfers and min assist with bathing. By discharge, he had progressed to independent with eating and grooming, modified independent for bathing, dressing, toileting, shower and toilet transfers. He rushed to his ADLs and had decreased safety awareness. It was recommended that he complete his course of inpatient therapy. He was anxious for discharge and did not wish to stay any longer. By discharge, he had progressed to independent with eating and grooming, modified independent with bathing, dressing, toileting, shower and toilet transfers. PT notes upon admission, the patient was standby assist for bed mobility, contact guard for transfers, could ambulate 50 feet x2 with contact guard with a wheeled walker. By discharge, the patient was modified independent for bed mobility and transfers, modified independent for car transfers, can ambulate 150 feet with a wheeled walker with standby assist. The patient was assessed by speech therapy upon admission in rehab unit and it was noted he displayed left facial weakness and inability to close his left eye. Additionally, a left labial droop was present. Regardless, the weakness; however, the patient remained 100% intelligible in known and unknown contexts and it was felt the patient displayed cognitive linguistic skills grossly within normal limits; however, may exhibit impulsivity intermittently. The impulsivity appears somewhat related to his poor vision and significantly decreased hearing, as his awareness of his environment is somewhat limited. DISCHARGE INSTRUCTIONS: The patient is discharged to home with family assisting as needed. He will have followup with his PCP in [place] on day of discharge, I believe he declined home healthcare. Continue current diet. DISCHARGE MEDICATIONS: Folic acid 1 mg p.o. daily, therapeutic multivitamins 1 tablet p.o. daily, thiamine 100 mg p.o. daily, levothyroxine 100 mcg p.o. daily, lisinopril 10 mg p.o. daily, oxycodone 5 to 15 mg p.o. q.3 hours p.r.n. severe pain. Seroquel 200 mg p.o. t.i.d., Senokot-S 1 tablet p.o. b.i.d., Cymbalta 60 mg p.o. b.i.d. DISCHARGE DIAGNOSES: 1. Rehabilitation acute encephalopathy, improving. 2. Bacterial meningitis, treated. 3. Acoustic schwannoma. 4. Hearing loss, left and partial right. 5. Postsurgical hypothyroidism, on replacement. 6. Tobaccoism, currently abstaining. 7. Alcohol use, currently abstaining. 8. Anxiety disorder, on meds. 9. Bipolar disorder, on meds. 10. Constipation, treated. 11. Leukocytosis, improving with negative blood cultures and UA. CONDITION AT DISCHARGE: Improved and stable. PROGNOSIS: Rehab prognosis appears good for some continued improvement at home, return to independent living. Certainly he would benefit from assistance from his family as needed. Job ID: [id number] DocumentID: [id number] Dictated Date: 10/20/2017 16:07:38 [employer] Date: 10/21/2017 05:16:54 Dictated By: MAYRA DAVIS MD
== END 2017-10-01 08:45 | disposition home or self-care (01) | DRG 72 ==
PROVIDERS: ADMIT Physical Medicine & Rehabilitation; ATTEND Physical Medicine & Rehabilitation
DX: G93.49 Other encephalopathy (principal); Z98.890 Other specified postprocedural states; H91.93 Unspecified hearing loss, bilateral; E89.0 Postprocedural hypothyroidism; F17.210 Nicotine dependence, cigarettes, uncomplicated; F10.10 Alcohol abuse, uncomplicated; F41.9 Anxiety disorder, unspecified; F31.9 Bipolar disorder, unspecified; K59.00 Constipation, unspecified; D72.829 Elevated white blood cell count, unspecified
CPT/HCPCS: 36415; 71045; 80048; 80053; 81000; 85007; 85025; 85027; 87040